=== PATIENT | female | born 1955 | race Caucasian/White ===

== ENCOUNTER → 2016-08-08 | Outpatient (REF) | payer OTHER | LOC: M LAB REF 12:23 | PROVIDERS: ATTEND Internal Medicine Medical Oncology | DX: C50.919 Malignant neoplasm of unspecified site of unspecified female breast (principal) ==

== ENCOUNTER → 2016-11-23 | Outpatient (CLI) | payer OTHER ==
--- NOTE | 2016-11-23 09:35 | REPMRS ---
Patient History The patient states she had a clinical breast exam in Jul 2016. Patient is postmenopausal, has history of breast cancer at age 58, and is nulliparous. Family history of colorectal cancer in maternal aunt. Malignant radio exam breast specimen, January 13, 2014. Benign ultrasound-guided FNA biopsy of the left breast, September 03, 2007. 2 radiation therapies of the left breast. Digital Mammo Screening Bilat: November 23, 2016 - Exam #: [id number] Bilateral CC and MLO view(s) were taken. Technologist: Amy Gutierrez, Technologist Prior study comparison: November 23, 2015, bilateral digital mammo screening bilat performed at [facility]. May 20, 2015, left breast digital mammo diagnostic unilateral performed at [facility]. November 19, 2014, digital mammo diagnostic bilateral performed at [facility]. FINDINGS: There are scattered fibroglandular densities. There has been no change in the appearance of the mammogram from the prior studies. There are stable post treatment changes in the left breast. There is a mild amount of scattered fibroglandular density which is fairly symmetric. There is no interval development of dominant mass, architectural distortion, or clustered microcalcification suggestive of malignancy. ASSESSMENT: BI-RADS/ACR category 1 mammogram. Negative. Recommendation Routine screening mammogram in 1 year (for women over age 40). This mammogram was interpreted with the aid of an FDA-approved computer-aided dectection system. Electronically Signed By: Albino Ernst MD 11/23/16 0935
== END ==
LOC: M RAD 08:57
PROVIDERS: ATTEND Nurse Practitioner Family
DX: Z12.31 Encounter for screening mammogram for malignant neoplasm of breast (principal); Z85.3 Personal history of malignant neoplasm of breast; Z80.3 Family history of malignant neoplasm of breast

== ENCOUNTER → 2016-12-21 | Outpatient (CLI) | payer OTHER ==
--- NOTE | 2016-12-22 06:53 | RADONC ---
RADIATION ONCOLOGY FOLLOWUP NOTE DATE: 12/21/2016 CHART NUMBER: [id number] DIAGNOSIS: Left breast cancer Stage: I B, [id number]. ECOG performance status 0. FOLLOWUP NOTE: Ms. 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 The patient presents today reporting that she is doing quite well with no complaints at this time related to her radiation therapy or disease. She has no breast or bone pain. REVIEW OF SYSTEMS: The patient's review of systems is noncontributory. Denies nausea, vomiting, fevers, chills, night sweats, diplopia, headaches, anxiety or depression, anorexia, weight loss, visual disturbances, chest pain, urinary or bowel difficulties, bone pain, or neurological problems. PHYSICAL EXAMINATION: The patient is a well-developed, well-nourished, 61-year-old female in no acute distress. HEENT exam is normocephalic, atraumatic. Extraocular movements are intact. There is no palpable cervical, supraclavicular, infraclavicular, axillary, or inguinal lymphadenopathy present. Lungs are clear to auscultation and percussion. Heart has a regular rate and rhythm. Abdomen is benign with no hepatosplenomegaly, masses, or tenderness. Breast examination reveals no masses or discharge bilaterally. Skeletal examination reveals no tenderness to pressure or percussion of the bony skeleton. Extremities reveal no clubbing, cyanosis, or edema. Neurologic exam is grossly intact, as is the remainder of the physical examination. ASSESSMENT: The patient is clinically MELI at this time and will be seen by us again in 6 months for further followup. She will also continue to be followed by her other physicians as well. cc: Cary Diop MD, FACP SONIDO Flores
== END ==
LOC: M ONCR 08:50
PROVIDERS: ATTEND Radiology Radiation Oncology
DX: C50.412 Malignant neoplasm of upper-outer quadrant of left female breast (principal)

== ENCOUNTER → 2017-04-19 | Outpatient (REF) | payer OTHER ==
[~2017-04-19] MED LIST: ADV100INH INH; ANAS1TAB PO; CALC600T57 PO; FAMO40TA3 PO; FOSA70TA PO; GLUC1CAP9 PO; MULT1TAB10 PO; NEXI40CA PO; OXYT3.9D TD; SING10TA32 PO; VENTAER IN; VITA-115 PO
[2017-04-19 15:49] LABS: FOLATE 23.9 NG/ML
== END ==
LOC: M LAB REF 12:58
PROVIDERS: ATTEND Internal Medicine Medical Oncology
DX: C50.919 Malignant neoplasm of unspecified site of unspecified female breast (principal)

== ENCOUNTER → 2017-07-05 | Outpatient (CLI) | payer OTHER | LOC: M ONCR 09:03 | DX: C50.412 Malignant neoplasm of upper-outer quadrant of left female breast (principal) | CPT/HCPCS: G0463 ==

== ENCOUNTER 2017-07-21 10:36 | Day surgery (SDC) | payer OTHER ==
[2017-07-21] MEDS: NS 1,000 ML IV (10:45)
[2017-07-21] MEDS ORDERED: PROPOFOL 500 MG/50 ML VIAL As Ordered (10:53)
[2017-07-21] MEDS ORDERED: LIDOCAINE 2% INJ 100 MG/5 ML SDV (FOR ANES.) As Ordered (10:54)
[2017-07-21] MEDS ORDERED: fentaNYL 100 MCG/2 ML INJECTION (J3010) As Ordered (11:04)
[2017-07-21] MEDS ORDERED: PHENYLephrine HCL 500 MCG/5 ML (100MCG/ML) SYRINGE (J2370) As Ordered (11:20)
== END 2017-07-21 12:01 | disposition home or self-care (01) ==
LOC: M OPP 10:36
DX: Z12.11 Encounter for screening for malignant neoplasm of colon (principal); K64.0 First degree hemorrhoids; K57.30 Diverticulosis of large intestine without perforation or abscess without bleeding; R12 Heartburn; K31.7 Polyp of stomach and duodenum; K21.9 Gastro-esophageal reflux disease without esophagitis; K44.9 Diaphragmatic hernia without obstruction or gangrene; M19.90 Unspecified osteoarthritis, unspecified site; N32.81 Overactive bladder; Z88.8 Allergy status to other drugs, medicaments and biological substances; Z79.899 Other long term (current) drug therapy; Z86.59 Personal history of other mental and behavioral disorders; Z85.3 Personal history of malignant neoplasm of breast; Z87.09 Personal history of other diseases of the respiratory system
CPT/HCPCS: 45378

== ENCOUNTER → 2017-09-12 | Outpatient (CLI) | payer OTHER | LOC: M ADAMS 14:15 | DX: M54.6 Pain in thoracic spine (principal) | CPT/HCPCS: 72082 ==

== ENCOUNTER 2017-11-10 08:30 | Emergency (ER) | payer OTHER ==
[2017-11-10 08:42] LABS: BASO # 0.1 10^3/uL (0.0-0.2); BASO % 0.6 % (0.0-1.0); EOS # 0.1 10^3/uL (0.0-0.50); EOS % 1.5 % (0.0-3.0); HEMATOCRIT 37.5 % (36.0-47.0); HEMOGLOBIN 12.8 g/dl (12.0-15.5); IMMATURE GRANULOCYTE % 0.2 % (0-3.0); LYMPH # 1.3 10^3/uL (1.5-4.5); LYMPH % 14.1 % (24.0-44.0); MEAN CORPUSCULAR HEMOGLOBIN 32.5 pg (27.0-33.0); MEAN CORPUSCULAR HGB CONC 34.1 g/dl (32.0-36.5); MEAN CORPUSCULAR VOLUME 95.2 fl (80.0-96.0); MONO # 0.9 10^3/uL (0.0-0.8); MONO % 9.5 % (0.0-5.0); NEUTROPHILS # 6.6 10^3/uL (1.8-7.7); NEUTROPHILS % 74.1 % (36.0-66.0); PLATELET COUNT, AUTOMATED 226 10^3/uL (150-450); RED BLOOD COUNT 3.94 10^6/uL (4.00-5.40); RED CELL DISTRIBUTION WIDTH 11.9 % (11.5-14.5); WHITE BLOOD COUNT 8.9 10^3/uL (4.0-10.0)
[2017-11-10 08:45] LABS: KETONE, URINE AUTO RFX NEGATIVE (NEGATIVE); LEUKOCYTE ESTERASE UR AUTO RFX NEGATIVE (NEGATIVE); NITRITE, URINE AUTO RFX NEGATIVE (NEGATIVE); RBC, URINE AUTO RFX 1 /HPF (0-3); SPECIFIC GRAVITY UR AUTO RFX 1.002 (1.002-1.035); SQUAM EPITHELIAL CELL UR AURFX 0 /HPF (0-6); WBC, URINE AUTO RFX 0 /HPF (0-3)
[2017-11-10] MEDS: NS 1,000 ML IV (08:45)
[2017-11-10 09:27] LABS: ALBUMIN 3.7 GM/DL (3.2-5.2); ALBUMIN/GLOBULIN RATIO 1.03 (1.00-1.93); ALKALINE PHOSPHATASE 76 U/L (45-117); ALT/SGPT 19 U/L (12-78); AMYLASE 41 U/L (25-115); ANION GAP 8 MEQ/L (8-16); AST/SGOT 14 U/L (7-37); BILIRUBIN,DIRECT 0.2 MG/DL (0.0-0.2); BILIRUBIN,TOTAL 0.6 MG/DL (0.2-1.0); BLOOD UREA NITROGEN 17 MG/DL (7-18); CALCIUM LEVEL 8.6 MG/DL (8.8-10.2); CARBON DIOXIDE LEVEL 26 MEQ/L (21-32); CHLORIDE LEVEL 107 MEQ/L (98-107); CREATININE FOR GFR 0.69 MG/DL (0.55-1.30); GLOMERULAR FILTRATION RATE > 60.0 (>45); GLUCOSE, FASTING 87 MG/DL (70-100); LIPASE 114 U/L (73-393); POTASSIUM SERUM 3.9 MEQ/L (3.5-5.1); SODIUM LEVEL 141 MEQ/L (136-145); TOTAL PROTEIN 7.3 GM/DL (6.4-8.2)
[2017-11-10] MEDS ORDERED: ISOVUE-370 76% 100ML VIAL (Q9967) As Ordered (09:28)
[2017-11-10] MEDS: CIPROFLOXACIN 500 MG TAB PO (10:15)
[2017-11-10] MEDS: metroNIDAZOLE (FLAGYL) 500 MG TAB PO (10:15)
== END 2017-11-10 10:20 | disposition home or self-care (01) ==
LOC: M ED 08:30
DX: K57.32 Diverticulitis of large intestine without perforation or abscess without bleeding (principal); K21.9 Gastro-esophageal reflux disease without esophagitis; Z88.8 Allergy status to other drugs, medicaments and biological substances; Z79.51 Long term (current) use of inhaled steroids; Z79.899 Other long term (current) drug therapy; Z87.19 Personal history of other diseases of the digestive system; Z98.890 Other specified postprocedural states
CPT/HCPCS: Q9967

== ENCOUNTER → 2017-11-14 | Outpatient (CLI) | payer OTHER | LOC: M WHC 08:19 | DX: R10.2 Pelvic and perineal pain (principal) | CPT/HCPCS: 76830 ==

== ENCOUNTER → 2017-11-27 | Outpatient (CLI) | payer OTHER | LOC: M RAD 09:28 | DX: Z12.31 Encounter for screening mammogram for malignant neoplasm of breast (principal); Z85.3 Personal history of malignant neoplasm of breast; Z78.0 Asymptomatic menopausal state; Z80.0 Family history of malignant neoplasm of digestive organs | CPT/HCPCS: 77067 ==

== ENCOUNTER → 2017-12-27 | Outpatient (CLI) | payer OTHER | LOC: M ONCR 08:29 | DX: C50.412 Malignant neoplasm of upper-outer quadrant of left female breast (principal) ==

== ENCOUNTER → 2018-02-15 | Outpatient (REF) | payer OTHER | LOC: M SFHCWAGY 09:02 | DX: Z12.4 Encounter for screening for malignant neoplasm of cervix (principal) ==

== ENCOUNTER → 2018-04-13 | Outpatient (CLI) | payer OTHER | LOC: M WHC 08:20 | DX: C50.919 Malignant neoplasm of unspecified site of unspecified female breast (principal); Z79.811 Long term (current) use of aromatase inhibitors | CPT/HCPCS: 77080 ==

== ENCOUNTER → 2018-04-13 | Outpatient (REF) | payer OTHER | LOC: M SFHCWAGY 08:53 | DX: R87.615 Unsatisfactory cytologic smear of cervix (principal) ==

== ENCOUNTER → 2018-04-26 | Outpatient (CLI) | payer OTHER | LOC: M RAD 09:39 | DX: C50.412 Malignant neoplasm of upper-outer quadrant of left female breast (principal); M54.5 Low back pain | CPT/HCPCS: 78306 ==

== ENCOUNTER → 2018-06-20 | Outpatient (CLI) | payer OTHER | LOC: M ONCR 14:37 | DX: C50.412 Malignant neoplasm of upper-outer quadrant of left female breast (principal) | CPT/HCPCS: G0463 ==

== ENCOUNTER → 2018-07-31 | Outpatient (CLI) | payer OTHER ==
[~2018-07-31] MED LIST changes: -ANAS1TAB PO; +ANAS1TAB2 PO; +CIPR-249 PO; +FLAG500T PO; +NORCOTAB PO
--- NOTE | 2018-07-31 19:44 | ECGEPIP ---
Stationary ECG Study [facility] Test Date: 2018-07-31 Pat Name: JOSE MILIAN Department: Room: - Gender: F Spool Winder: : [id number] Requested By: Castro Pillai Order Number: [id number] Reading MD: Milton Guillen Measurements Intervals [place] Rate: 84 P: 57 UT: 171 QRS: 67 QRSD: 81 T: 61 QT: 367 QTc: 435 Interpretive Statements Normal sinus rhythm with PAC Nonspecific ST-T wave abnormalities Comparison tracing not on file Electronically Signed On 07-31-2018 19:44:06 EST by Milton Guillen
== END ==
LOC: M EKG 16:47
PROVIDERS: ATTEND Anesthesiology
DX: Z01.818 Encounter for other preprocedural examination (principal); K44.9 Diaphragmatic hernia without obstruction or gangrene; K21.9 Gastro-esophageal reflux disease without esophagitis; M81.0 Age-related osteoporosis without current pathological fracture

== ENCOUNTER 2018-08-07 05:48 | Inpatient (IN) | payer OTHER ==
--- NOTE | 2018-08-06 17:37 | HPE ---
DATE OF ADMISSION: 08/07/2018 BRIEF HISTORY OF PRESENT ILLNESS: The patient is a 63-year-old female who has had multiple episodes of recurrent left lower quadrant pain and discomfort, partial obstructive symptoms, and this has happened over the last year. Essentially has had some partial obstructive symptoms as well in between these episodes of diverticulitis. She has some significant pain and discomfort in the left lower quadrant area and has had several episodes where CAT scans have shown diverticulitis. She states after taking stool softeners and evacuating she will have decreasing pain and discomfort but otherwise has not had any blood per rectum. PAST MEDICAL HISTORY: Significant for a history of fiber cystic disease of the breast, asthma, hiatal hernia, arthritis, overactive bladder, breast cancer, depression, appendectomy, cholecystectomy, tubal ligation, hiatal hernia repair. PHYSICAL EXAMINATION: Reveals a 63-year-old female who looks stated age. HEENT: Unremarkable. NECK: Supple without adenopathy. LUNGS: Clear to auscultation without crackles, wheezes or rhonchi. HEART: Regular without murmur. ABDOMEN: Soft, nondistended, nontender. No guarding. No rebound. No peritoneal signs are appreciated. No evidence of ongoing or acute diverticulitis. IMPRESSION AND PLAN: The patient has had multiple episodes of diverticulitis and with the left lower quadrant pain, discomfort and the symptoms of recurrent episodes of diverticulitis with left lower quadrant pain, I have discussed proceeding with a laparoscopic sigmoid colectomy for her. The risks as well as the benefits have been discussed with her at length, those including but not limited to infection, bleeding, damage to surrounding structures including bowel, bladder, nerve, vessels, ureter or kidney as well as plans for a splenic flexure takedown with a coloproctostomy. The patient understands there is a risk for colostomy placement as well as anastomotic leak and postoperatively I have discussed with her as well, she has had this left lower quadrant pain that seems consistent with the symptomatic diverticulosis/recurrent episodes of diverticulitis. However, she may still have some ongoing crampy abdominal pain that may be persistent postoperatively, unrelated to the previous diagnosis. She would like to proceed with this as scheduled. We will place a Rust catheter, nothing by mouth, IV fluids, IV antibiotics, and place thromboembolic-deterrent stockings (TEDS), sequentials intraoperatively and postoperatively. Plan on admission and hospital days depending on her postoperative recovery, usually ranging from 3-5 in the typical postoperative setting.
[2018-08-07] VITALS (7 sets, daily range): BP systolic 129–147; BP diastolic 72–85
[~2018-08-07] VITALS: Ht 167.6 cm; Wt 62.1 kg
[2018-08-07] MEDS ORDERED: LR 1,000 ML IV ONE (06:00)
[2018-08-07] MEDS ORDERED: METR-201 PO (06:36)
[2018-08-07] MEDS ORDERED: NEOM500T PO (06:36)
[2018-08-07] MEDS ORDERED: BUPIVACAINE HCL 0.25% 30 ML VIAL As Ordered ONE (07:08)
[2018-08-07] MEDS ORDERED: BUPIVACAINE LIPOSOME/PF 1.3% 20ML VIAL (13.3MG/ML)(EXPAREL)(C9290 PER1MG) As Ordered ONE (07:08)
[2018-08-07] MEDS ORDERED: GLUCAGON FOR INJ 1 MG VIAL (J1610) As Ordered ONE (07:08)
[2018-08-07] MEDS ORDERED: BUPIVACAINE/EPIN 0.25% 30 ML VIAL As Ordered ONE (07:08)
[2018-08-07] MEDS ORDERED: LIDOCAINE 2% INJ 100 MG/5 ML SDV (FOR ANES.) As Ordered ONE (07:17)
[2018-08-07] MEDS ORDERED: PROPOFOL 200 MG/20 ML VIAL As Ordered ONE (07:17)
[2018-08-07] MEDS ORDERED: ROCURONIUM BROMIDE 50 MG/5 ML VIAL As Ordered ONE ×2 (07:17→08:16)
[2018-08-07] MEDS ORDERED: fentaNYL 100 MCG/2 ML INJECTION (J3010) As Ordered ONE (07:17)
[2018-08-07] MEDS ORDERED: MIDAZOLAM INJ 2 MG/2 ML VIAL (J2250) As Ordered ONE (07:17)
[2018-08-07] MEDS ORDERED: ERTAPENEM SODIUM 1 GM in NS 50 ML IV ONE (07:45)
[2018-08-07] MEDS ORDERED: HYDROmorphone HCL 2 MG/ML 1ML VIAL (J1170) As Ordered ONE (08:01)
[2018-08-07] MEDS ORDERED: dexameTHASONE 4 MG/ML 1ML VIAL (J1100) As Ordered ONE (08:02)
[2018-08-07] MEDS ORDERED: PHENYLephrine HCL 500 MCG/5 ML (100MCG/ML) SYRINGE (J2370) As Ordered ONE (08:16)
[2018-08-07] MEDS ORDERED: ONDANSETRON 4MG/2ML VIAL (J2405) As Ordered ONE (09:58)
[2018-08-07] MEDS ORDERED: SUGAMMADEX SODIUM 500 MG/5 ML VIAL (BRIDION) As Ordered ONE (09:58)
[2018-08-07] MEDS ORDERED: NS 1,000 ML IV SCH (10:07)
[2018-08-07] MEDS ORDERED: METOCLOPRAMIDE INJ 10MG/2ML VIAL (J2765) IV PRN (10:15)
[2018-08-07] MEDS ORDERED: PROMETHAZINE INJ 25 MG/ML VIAL (J2550) IV PRN (10:15)
[2018-08-07] MEDS ORDERED: EPIDURAL/PCA KEYS XX PRN (10:15)
[2018-08-07] MEDS ORDERED: ONDANSETRON 4MG/2ML VIAL (J2405) IV PRN ×2 (10:15→10:30)
[2018-08-07] MEDS ORDERED: NALOXONE INJ 0.4 MG/1 ML VIAL (J2310) IV PRN (10:15)
[2018-08-07] MEDS ORDERED: MORPHINE 1MG/ML IN 0.9% NACL 100ML IV BAG IV PRN (10:15)
[2018-08-07] MEDS ORDERED: NALBUPHINE HCL 10 MG/ML AMP (J2300) IV PRN (10:15)
[2018-08-07] MEDS ORDERED: HYDROMORPHONE HCL 0.5 MG/ 0.5 ML SYRINGE (J1170 PER 1) IV PRN (10:30)
[2018-08-07] MEDS ORDERED: PERCOCET 5MG/325MG TAB PO PRN (10:30)
[2018-08-07] MEDS ORDERED: LR 1,000 ML IV SCH (10:30)
[2018-08-07] MEDS ORDERED: fentaNYL 100 MCG/2 ML INJECTION (J3010) IV PRN (10:30)
--- NOTE | 2018-08-07 10:44 | RO ---
DATE OF PROCEDURE: 08/07/2018 PREOPERATIVE DIAGNOSIS: Sigmoid diverticulitis. POSTOPERATIVE DIAGNOSIS: Sigmoid diverticulitis. PROCEDURE: Laparoscopic sigmoid colectomy with coloproctostomy. SURGEON: Remy Hallman MD BLANKET BINDER: Dr. Townsend (Dr. Townsend provided retraction exposure, assistance with the coloanal anastomosis. ESTIMATED BLOOD LOSS (EBL): Minimal. FLUIDS: Crystalloid. BRIEF PROCEDURE SUMMARY: The patient was brought to the operating room, was given general anesthesia. After adequate anesthesia and preoperative antibiotics were given, the patient was prepped and draped in the usual sterile fashion. Next, a supraumbilical incision was made with skin knife. Blunt dissection was carried down to fascia. Fascia was grasped with Suzan clamps, elevated and a Veress needle placed into the abdominal cavity insufflated to 15 mm of pressure. A dilating 10 mm trocar was placed at this time and under direct visualization two left lateral 5 mm trocars were placed; a 5 mm right upper quadrant and 12 mm right lower quadrant placed. Next, the patient was placed in Trendelenburg position right side down and the small bowel was pulled out of the pelvis, and there was definitely some adhesions of the sigmoid colon up against left pelvic sidewall and up against the ovary. It was actually tightly adherent to the ovary on the side and I did need to peel off the ovary off the colon itself using a Harmonic scalpel, and peeling it off the pelvic sidewall in this area using the Harmonic scalpel. Eventually after the sigmoid colon was mobilized adequately it was obvious that there was a significant amount of redundancy in the sigmoid colon, and thus, a portion distal to the area of inflammation/scarring was identified and then the mesentery was taken down with Harmonic scalpel. BETTIE stapler was placed across this and then the vessels on the sigmoid area were taken under direct visualization as well with the echelon 60 stapler. The colon was transected at the rectosigmoid junction and below any additional diverticulum. Then, the descending colon was mobilized using the Harmonic scalpel as well as down to the level of the descending colon, sigmoid colon junction. Once this area was nicely mobilized, it was obvious that the colon could reach the rectosigmoid junction. Thus, a small abdominal incision was made with skin knife. Electrocautery was used cut through dermis, underlying subcutaneous tissue down into the peritoneum. A portion of the bowel was resected. The EEA stapler was placed on the proximal portion and placed intra-abdominally. #1 Vicryl was used to close the incision at the umbilicus and the patient was re-insufflated and an anastomosis was created with an end-to-end anastomosis just distal to the rectal staple line. Once this was performed, water was placed into pelvis and under air insufflation the area was intact. There was a slight serosal tear on the rectum distally. Although, this was not transmural just in its location a couple centimeters away from the anastomosis I did want to risks increased pressure, edema, etc. in this area. Thus, I placed some fibrin glue over the top of this and over the anastomosis in this area. The Harpal-Victoria was used to the right lower quadrant incision and a North-Botello drain was left in the dissection. All incisions were closed with danny and dry sterile dressing. The patient was awakened, extubated, brought to recovery room awake, alert, hemodynamically stable. Sponge and needle counts correct times two.
[2018-08-07] MEDS: NS 1,000 ML IV SCH (13:04)
[2018-08-07] MEDS: ADVAIR HFA 45/21MCG INHALER INH SCH (22:45)
[2018-08-08] VITALS: BP 119/58
[2018-08-08] MEDS: NS 1,000 ML IV SCH ×4 (03:59→20:28)
[2018-08-08 04:00] VITALS: BP 136/70
[2018-08-08 07:11] LABS: HEMATOCRIT 32.8 % (36.0-47.0); HEMOGLOBIN 10.9 g/dl (12.0-15.5); MEAN CORPUSCULAR HEMOGLOBIN 32.6 pg (27.0-33.0); MEAN CORPUSCULAR HGB CONC 33.2 g/dl (32.0-36.5); MEAN CORPUSCULAR VOLUME 98.2 fl (80.0-96.0); PLATELET COUNT, AUTOMATED 206 10^3/uL (150-450); RED BLOOD COUNT 3.34 10^6/uL (4.00-5.40); WHITE BLOOD COUNT 8.3 10^3/uL (4.0-10.0)
[2018-08-08 07:26] LABS: BLOOD UREA NITROGEN 17 MG/DL (7-18); CALCIUM LEVEL 7.6 MG/DL (8.8-10.2); CARBON DIOXIDE LEVEL 23 MEQ/L (21-32); CHLORIDE LEVEL 108 MEQ/L (98-107); CREATININE FOR GFR 0.48 MG/DL (0.55-1.30); GLOMERULAR FILTRATION RATE > 60.0 (>45); GLUCOSE, FASTING 76 MG/DL (70-100); POTASSIUM SERUM 3.9 MEQ/L (3.5-5.1); SODIUM LEVEL 140 MEQ/L (136-145)
[2018-08-08] MEDS: ADVAIR HFA 45/21MCG INHALER INH SCH ×2 (07:32→21:25)
[2018-08-08] MEDS ORDERED: ERTAPENEM SODIUM 1 GM in NS MINI-BAG PLUS 50 ML IV ONE (08:00)
[2018-08-08 08:30] VITALS: BP 121/60
[2018-08-08] MEDS: PANTOPRAZOLE 40MG INJ (PROTONIX) (C9113) IV SCH (08:39)
[2018-08-08] MEDS ORDERED: MONTELUKAST 10 MG TAB PO SCH (09:00)
[2018-08-08 12:00] VITALS: BP 133/68
[2018-08-08] MEDS: ALVIMOPAN 12 MG CAPSULE (ENTEREG) PO SCH ×2 (13:24→20:28)
[2018-08-08 16:00] VITALS: BP 134/64
[2018-08-08 20:00] VITALS: BP 140/70
[2018-08-08] MEDS: MONTELUKAST 10 MG TAB PO SCH (20:28)
[2018-08-09] VITALS: BP 137/67
[2018-08-09] MEDS: NS 1,000 ML IV SCH ×2 (02:07→10:37)
[2018-08-09 04:00] VITALS: BP 131/74
[2018-08-09] MEDS: ADVAIR HFA 45/21MCG INHALER INH SCH ×2 (07:24→20:03)
[2018-08-09 08:00] VITALS: BP 141/72
[2018-08-09 08:00] LABS: HEMATOCRIT 32.1 % (36.0-47.0); HEMOGLOBIN 10.8 g/dl (12.0-15.5); MEAN CORPUSCULAR HEMOGLOBIN 32.7 pg (27.0-33.0); MEAN CORPUSCULAR HGB CONC 33.6 g/dl (32.0-36.5); MEAN CORPUSCULAR VOLUME 97.3 fl (80.0-96.0); PLATELET COUNT, AUTOMATED 200 10^3/uL (150-450); WHITE BLOOD COUNT 8.4 10^3/uL (4.0-10.0)
[2018-08-09 08:31] LABS: BLOOD UREA NITROGEN 13 MG/DL (7-18); CALCIUM LEVEL 7.6 MG/DL (8.8-10.2); CARBON DIOXIDE LEVEL 23 MEQ/L (21-32); CHLORIDE LEVEL 106 MEQ/L (98-107); CREATININE FOR GFR 0.36 MG/DL (0.55-1.30); GLOMERULAR FILTRATION RATE > 60.0 (>45); GLUCOSE, FASTING 54 MG/DL (70-100); POTASSIUM SERUM 3.6 MEQ/L (3.5-5.1); SODIUM LEVEL 138 MEQ/L (136-145)
[2018-08-09] MEDS: PANTOPRAZOLE 40MG INJ (PROTONIX) (C9113) IV SCH (09:04)
[2018-08-09] MEDS: ALVIMOPAN 12 MG CAPSULE (ENTEREG) PO SCH ×2 (09:04→21:17)
[2018-08-09 12:00] VITALS: BP 144/86
[2018-08-09 16:00] VITALS: BP 133/76
--- NOTE | 2018-08-09 16:12 | IPNPDOC ---
Date Seen The patient was seen on 08/09/18. Progress Note SUBJECTIVE: Patient was seen and examined this morning. She states that she has had some improvement in her pain. She currently denies passing gas or having a bowel movement. She denies any nausea or vomiting. She did state that she had some rectal bleeding last night. She denies any fever or chills. OBJECTIVE PHYSICAL EXAMINATION: VITAL SIGNS: Please see below. GENERAL: Awake alert and oriented x3. She appears in no acute distress. She is laying comfortably in bed. HEENT: Atraumatic, normocephalic. Eyes are non-icteric. Trachea is midline. CARDIOVASCULAR: Normal S1, S2. Regular rate and rhythm. No clicks rubs or murmurs noted on exam RESPIRATORY: Clear to auscultation bilaterally with good respiratory effort. No wheezes, rhonci, or rales ABDOMINAL: Nondistended, soft. Slight tenderness to palpation. No rebound tenderness or guarding. Midline incision is without erythema. Serosanguineous drainage is present at midline incision. VANESSA drain is in place. EXTREMITIES: No edema. Full and equal pulses PSYCHOLOGICAL: Mood and affect appear appropriate LABORATORY DATA, IMAGING STUDIES, MICROBIOLOGY: Please see below. ASSESSMENT AND PLAN: 1. Diverticulitis s/p laparoscopic sigmoid colectomy post-op day 2 -Patient has noted improvement in her pain. She is still not passing gas or having bowel movements. -Patient remains afebrile without a white count. Will continue to monitor -Patient has had elder removed today. She will receive her home oxybutin patch for urinary incontinence -Patient will be advanced to clear liquids diet VS, I&O, 24H, [facility] Vital Signs/I&O Vital Signs Date Time Temp Pulse Resp B/P (MAP) Pulse Ox O2 Delivery O2 Flow Rate FiO2 08/09/18 12:00 98.4 94 20 144/86 (105) 99 2.0 08/08/18 12:00 Nasal Cannula I&O- Last 24 Hours up to 6 AM 08/09/18 06:00 Intake Total 100 ml Output Total 1715 ml Balance -1615 ml Laboratory Data 24H LABS Laboratory Tests 2 08/09/18 07:08: Nucleated Red Blood Cells % (auto) 0.0, Anion Gap 9, Glomerular Filtration Rate > 60.0, Blood Urea Nitrogen 13, Creatinine 0.36L, Sodium Level 138, Potassium Level 3.6, Chloride Level 106, Carbon Dioxide Level 23, Calcium Level 7.6L CBC/BMP Laboratory Tests 08/09/18 07:08 Red Blood Count 3.30 L, Mean Corpuscular Volume 97.3 H, Mean Corpuscular Hemoglobin 32.7, Mean Corpuscular Hemoglobin Concent 33.6, Red Cell Distribution Width 11.7, Calcium Level 7.6 L GME ATTESTATION GME ATTESTATION My faculty preceptor for this patient encounter was physically present during the encounter and was fully available. All aspects of the patient interview, examination, medical decision making process, and medical care plan development were reviewed and approved by the faculty preceptor. The faculty preceptor is aware and concurs with the plan as stated in the body of this note and will attest to such by his/her cosignature. GARY NAVARRO DO Aug 09, 2018 16:12
[2018-08-09 20:00] VITALS: BP 125/64
[2018-08-09] MEDS: MONTELUKAST 10 MG TAB PO SCH (21:17)
[2018-08-09] MEDS: ANASTROZOLE 1MG TABLET (PATIENT'S OWN MED) PO SCH (21:17)
[2018-08-10] VITALS: BP 132/70
[2018-08-10 04:00] VITALS: BP 142/73
[2018-08-10 06:53] LABS: HEMOGLOBIN 11.1 g/dl (12.0-15.5); MEAN CORPUSCULAR HEMOGLOBIN 32.5 pg (27.0-33.0); MEAN CORPUSCULAR HGB CONC 33.6 g/dl (32.0-36.5); MEAN CORPUSCULAR VOLUME 96.5 fl (80.0-96.0); PLATELET COUNT, AUTOMATED 188 10^3/uL (150-450); RED BLOOD COUNT 3.42 10^6/uL (4.00-5.40); WHITE BLOOD COUNT 7.2 10^3/uL (4.0-10.0)
[2018-08-10 07:22] LABS: BLOOD UREA NITROGEN 9 MG/DL (7-18); CALCIUM LEVEL 8.1 MG/DL (8.8-10.2); CARBON DIOXIDE LEVEL 29 MEQ/L (21-32); CHLORIDE LEVEL 104 MEQ/L (98-107); CREATININE FOR GFR 0.37 MG/DL (0.55-1.30); GLOMERULAR FILTRATION RATE > 60.0 (>45); GLUCOSE, FASTING 94 MG/DL (70-100); POTASSIUM SERUM 3.7 MEQ/L (3.5-5.1); SODIUM LEVEL 139 MEQ/L (136-145)
[2018-08-10 08:00] VITALS: BP 139/65
[2018-08-10] MEDS: ADVAIR HFA 45/21MCG INHALER INH SCH ×2 (08:22→20:13)
[2018-08-10] MEDS: PANTOPRAZOLE 40MG INJ (PROTONIX) (C9113) IV SCH (10:24)
--- NOTE | 2018-08-10 10:35 | IPNPDOC ---
Date Seen The patient was seen on 08/10/18. Progress Note SUBJECTIVE: Patient was seen and examined this morning. She currently admits to improvement in her pain. She has had two bowel movements since yesterday. She is denying any fevers, chills, nausea, vomiting, or diarrhea. She did state that during her bowel movement she may have noticed some blood but nothing alarming. She does state that she has an appetite. OBJECTIVE PHYSICAL EXAMINATION: VITAL SIGNS: Please see below. GENERAL: Patient is awake, alert, and oriented. She appears in no acute distress. She is sitting comfortably in chair. HEENT: Atraumatic, normocephalic. Eyes are non-icteric. Trachea is midline CARDIOVASCULAR: Normal S1, S2. Regular rate and rhythm. No clicks, rubs, or m urmurs noted on exam. RESPIRATORY: Clear to auscultation bilaterally with good respiratory effort. No wheezes, rhonchi, or rales ABDOMINAL: Soft, slight tenderness to palpation. No rebound tenderness or guarding. Positive bowel sound in all four quadrants EXTREMITIES: No edema. Full and equal pulses bilaterally PSYCHOLOGICAL: Mood and affect appear appropriate LABORATORY DATA, IMAGING STUDIES, MICROBIOLOGY: Please see below. ASSESSMENT AND PLAN: 1. Diverticulitis s/p laparoscopic sigmoid colectomy post-op day 3 -Patient has noted improvement in her pain. She has had two bowel movements since last night -Patient remains afebrile without a white count. Will continue to monitor -Patient will be advanced to a regular diet. Will D/C IV fluids. -D/C IV pain medication. Patient will be started on Vicodin for pain control DISPOSITION: Patient continues to show improvement. Likely discharge in 2-3 days VS[facility] Vital Signs/I&O Vital Signs Date Time Temp Pulse Resp B/P (MAP) Pulse Ox O2 Delivery O2 Flow Rate FiO2 08/10/18 08:00 98.1 90 18 139/65 (89) 95 08/10/18 05:13 2.0 08/08/18 12:00 Nasal Cannula I&O- Last 24 Hours up to 6 AM 08/10/18 06:00 Intake Total 3080 ml Output Total 1370 ml Balance 1710 ml Laboratory Data 24H LABS Laboratory Tests 2 08/10/18 06:37: Nucleated Red Blood Cells % (auto) 0.0, Anion Gap 6L, Glomerular Filtration Rate > 60.0, Blood Urea Nitrogen 9, Creatinine 0.37L, Sodium Level 139, Potassium Level 3.7, Chloride Level 104, Carbon Dioxide Level 29, Calcium Level 8.1L CBC/BMP Laboratory Tests 08/10/18 06:37 Red Blood Count 3.42 L, Mean Corpuscular Volume 96.5 H, Mean Corpuscular Hemoglobin 32.5, Mean Corpuscular Hemoglobin Concent 33.6, Red Cell Distribution Width 11.7, Calcium Level 8.1 L GME ATTESTATION GME ATTESTATION My faculty preceptor for this patient encounter was physically present during the encounter and was fully available. All aspects of the patient interview, examination, medical decision making process, and medical care plan development were reviewed and approved by the faculty preceptor. The faculty preceptor is aware and concurs with the plan as stated in the body of this note and will attest to such by his/her cosignature. GARY NAVARRO DO Aug 10, 2018 10:35
[2018-08-10 16:00] VITALS: BP 130/61
[2018-08-10] MEDS: NORCO, ANEXSIA 5/325MG TABLET (HYDROcodone/ACETAMINOPHEN) PO PRN ×2 (16:19→20:59)
[2018-08-10] MEDS: ANASTROZOLE 1MG TABLET (PATIENT'S OWN MED) PO SCH (20:43)
[2018-08-10] MEDS: MONTELUKAST 10 MG TAB PO SCH (20:45)
[2018-08-10 21:00] VITALS: BP 119/72
[2018-08-10] MEDS ORDERED: OXYTROL TD SCH (21:00)
[2018-08-11] VITALS: BP 134/67
[2018-08-11 04:00] VITALS: BP 136/79
[2018-08-11] MEDS: NORCO, ANEXSIA 5/325MG TABLET (HYDROcodone/ACETAMINOPHEN) PO PRN ×2 (04:29→10:26)
[2018-08-11 06:35] LABS: HEMATOCRIT 34.6 % (36.0-47.0); HEMOGLOBIN 11.7 g/dl (12.0-15.5); MEAN CORPUSCULAR HEMOGLOBIN 32.8 pg (27.0-33.0); MEAN CORPUSCULAR HGB CONC 33.8 g/dl (32.0-36.5); MEAN CORPUSCULAR VOLUME 96.9 fl (80.0-96.0); PLATELET COUNT, AUTOMATED 219 10^3/uL (150-450); RED BLOOD COUNT 3.57 10^6/uL (4.00-5.40); WHITE BLOOD COUNT 7.7 10^3/uL (4.0-10.0)
[2018-08-11 07:13] LABS: BLOOD UREA NITROGEN 9 MG/DL (7-18); CALCIUM LEVEL 8.7 MG/DL (8.8-10.2); CARBON DIOXIDE LEVEL 31 MEQ/L (21-32); CHLORIDE LEVEL 104 MEQ/L (98-107); CREATININE FOR GFR 0.44 MG/DL (0.55-1.30); GLOMERULAR FILTRATION RATE > 60.0 (>45); GLUCOSE, FASTING 107 MG/DL (70-100); SODIUM LEVEL 141 MEQ/L (136-145)
[2018-08-11 08:00] VITALS: BP 137/66
[2018-08-11] MEDS: PANTOPRAZOLE 40MG INJ (PROTONIX) (C9113) IV SCH (08:08)
[2018-08-11] MEDS: ADVAIR HFA 45/21MCG INHALER INH SCH (08:15)
[2018-08-11] MEDS ORDERED: NORCOTAB PO (08:19)
== END 2018-08-11 10:45 | disposition home or self-care (01) | DRG 331 ==
LOC: M OR 05:48 → M PED 11:30
PROVIDERS: ADMIT Surgery; ATTEND Surgery
PROC: 0DBE4ZZ Excision of Large Intestine, Percutaneous Endoscopic Approach (ICD-10-PCS; principal; 2018-08-07 07:30)
DX: K57.32 Diverticulitis of large intestine without perforation or abscess without bleeding (principal); J45.909 Unspecified asthma, uncomplicated; K44.9 Diaphragmatic hernia without obstruction or gangrene; F32.9 Major depressive disorder, single episode, unspecified; N32.81 Overactive bladder; Z85.3 Personal history of malignant neoplasm of breast; Z90.49 Acquired absence of other specified parts of digestive tract; Z88.6 Allergy status to analgesic agent; Z91.048 Other nonmedicinal substance allergy status; Z79.899 Other long term (current) drug therapy

== ENCOUNTER → 2018-09-13 | Outpatient (REF) | payer OTHER ==
[~2018-09-13] MED LIST changes: +METR-201 PO; +NEOM500T PO
[2018-09-13 12:37] LABS: HEMATOCRIT 38.8 % (36.0-47.0); HEMOGLOBIN 12.7 g/dl (12.0-15.5); MEAN CORPUSCULAR HEMOGLOBIN 32.2 pg (27.0-33.0); MEAN CORPUSCULAR HGB CONC 32.7 g/dl (32.0-36.5); MEAN CORPUSCULAR VOLUME 98.2 fl (80.0-96.0); PLATELET COUNT, AUTOMATED 244 10^3/uL (150-450); RED BLOOD COUNT 3.95 10^6/uL (4.00-5.40); WHITE BLOOD COUNT 6.1 10^3/uL (4.0-10.0)
[2018-09-13 13:28] LABS: ALBUMIN 3.8 GM/DL (3.2-5.2); ALT/SGPT 22 U/L (12-78); BILIRUBIN,TOTAL 0.5 MG/DL (0.2-1.0); BLOOD UREA NITROGEN 14 MG/DL (7-18); CALCIUM LEVEL 9.3 MG/DL (8.8-10.2); CARBON DIOXIDE LEVEL 32 MEQ/L (21-32); CHLORIDE LEVEL 103 MEQ/L (98-107); CHOLESTEROL LEVEL 186 MG/DL (<200); CHOLESTEROL RISK RATIO 2.818 (<5); CREATININE FOR GFR 0.56 MG/DL (0.55-1.30); FREE T4 0.97 NG/DL (0.76-1.46); GLOMERULAR FILTRATION RATE > 60.0 (>45); GLUCOSE, FASTING 85 MG/DL (70-100); HDL CHOLESTEROL 66 MG/DL (>40); LDL CHOLESTEROL 108 MG/DL (<100); NON-HDL-C 120 MG/DL; POTASSIUM SERUM 4.2 MEQ/L (3.5-5.1); SODIUM LEVEL 141 MEQ/L (136-145); THYROID STIMULATING HORMONE 0.779 uIU/ML (0.358-3.740); TOTAL 25(OH) VITAMIN D 33.6 NG/ML (30.0-100.0); TOTAL PROTEIN 6.9 GM/DL (6.4-8.2); TRIGLYCERIDES LEVEL 60 MG/DL (<150)
[2018-09-14 11:28] LABS: HEPATITIS C VIRUS ABY INDEX < 0.0 INDEX (<0.8)
== END ==
LOC: M SFHCADAM 08:20
PROVIDERS: ATTEND Family Medicine
DX: K57.32 Diverticulitis of large intestine without perforation or abscess without bleeding (principal); E78.5 Hyperlipidemia, unspecified; Z11.59 Encounter for screening for other viral diseases; E55.9 Vitamin D deficiency, unspecified

== ENCOUNTER → 2018-09-27 | Outpatient (CLI) | payer OTHER ==
--- NOTE | 2018-09-28 16:43 | REP ---
Clinical: Right upper quadrant pain. Technique: Axial noncontrast images from the lung bases to the pubic symphysis with coronal and sagittal re-formations. Comparison: 02/13/2018. Findings: Lung bases are clear. Liver, spleen, pancreas, bilateral adrenal glands and kidneys are normal for noncontrast evaluation. The patient is status post cholecystectomy. The enteric system demonstrates diffuse diverticulosis without evidence for obstruction or acute inflammatory process. Pelvis demonstrates normal bladder and evidence of prior hysterectomy as well as prior partial sigmoid resection and anastomoses. No ascites. No free air. No obvious adenopathy. Abdominal aorta without aneurysm. Musculoskeletal structures demonstrate age-related degenerative change without focal osseous abnormality. Impression: 1. No acute abdominopelvic pathology appreciated. 2. Diverticulosis. 3. Chronic stable changes. Electronically Signed by René Cross MD 09/28/2018 04:33 P
== END ==
LOC: M RAD 16:09
PROVIDERS: ATTEND Surgery
DX: R10.11 Right upper quadrant pain (principal); K57.50 Diverticulosis of both small and large intestine without perforation or abscess without bleeding

== ENCOUNTER → 2018-11-29 | Outpatient (CLI) | payer OTHER ==
[~2018-11-29] MED LIST changes: +D-40TAB2 PO; +GLUC500C37 PO; +HYDR-3715 PO; -METR-201 PO; +METR-265 PO; +MIRA3350 PO; -NORCOTAB PO; +[UNRECOGNIZED DRUG - CODE] PO
--- NOTE | 2018-11-29 10:11 | REPMRS ---
Patient History The patient states she had a clinical breast exam in October 2018.Family history of colorectal cancer in maternal aunt. Malignant radio exam breast specimen, January 13, 2014. Benign ultrasound-guided FNA biopsy of the left breast, September 03, 2007. 2 radiation therapies of the left breast. 3D TOMOSYNTHESIS WAS PERFORMED. Digital Mammo Screening Bilat: November 29, 2018 - Exam #: [id number] Bilateral CC and MLO view(s) were taken. Technologist: Frances Brown, Technologist Prior study comparison: November 27, 2017, bilateral digital mammo screening bilat performed at [facility]. November 23, 2016, bilateral digital mammo screening bilat performed at [facility]. FINDINGS: There are scattered fibroglandular densities. There has been no change in the appearance of the mammogram from the prior studies. There is a mild amount of residual fibroglandular tissue which is fairly symmetric. There is no interval development of dominant mass, architectural distortion, or clustered microcalcification suggestive of malignancy. Assessment: BI-RADS/ACR category 1 mammogram. Negative Mammogram. Recommendation Routine screening mammogram in 1 year (for women over age 40). This mammogram was interpreted with the aid of an FDA-approved computer-aided dectection system. Electronically Signed By: Aly Chowdary MD 11/29/18 1013
== END ==
LOC: M RAD 08:24
PROVIDERS: ATTEND Internal Medicine Hematology & Oncology
DX: Z12.31 Encounter for screening mammogram for malignant neoplasm of breast (principal); Z85.3 Personal history of malignant neoplasm of breast; Z80.0 Family history of malignant neoplasm of digestive organs

== ENCOUNTER → 2019-01-17 | Outpatient (REF) | payer OTHER ==
[2019-01-17 19:03] LABS: APPEARANCE, URINE CLEAR (CLEAR); BACTERIA, URINE AUTO NEGATIVE (NEGATIVE); BILIRUBIN, URINE AUTO NEGATIVE (NEGATIVE); BLOOD, URINE BLOOD NEGATIVE (NEGATIVE); COLOR, URINE YELLOW (YELLOW); GLUCOSE, URINE (UA) AUTO NEGATIVE (NEGATIVE); KETONE, URINE AUTO NEGATIVE (NEGATIVE); LEUKOCYTE ESTERASE, URINE AUTO NEGATIVE (NEGATIVE); NITRITE, URINE AUTO NEGATIVE (NEGATIVE); PROTEIN, URINE AUTO NEGATIVE (NEGATIVE); RBC, URINE AUTO 0 /HPF (0-3); SPECIFIC GRAVITY URINE AUTO 1.005 (1.002-1.035); SQUAMOUS EPITHELIAL CELL UR AU 0 /HPF (0-6); UROBILINOGEN, URINE AUTO 0.2 mg/dL (0.0-2.0); WBC, URINE AUTO 0 /HPF (0-3)
== END ==
LOC: M SMT 17:06
PROVIDERS: ATTEND Urology
DX: R39.9 Unspecified symptoms and signs involving the genitourinary system (principal)

== ENCOUNTER 2019-01-19 09:20 | Emergency (ER) | payer OTHER ==
[~2019-01-19] VITALS: Ht 167.6 cm; Wt 61.4 kg
[2019-01-19 10:25] LABS: BASO # 0.1 10^3/uL (0.0-0.2); BASO % 1.1 % (0.0-1.0); EOS # 0.1 10^3/uL (0.0-0.50); EOS % 2.4 % (0.0-3.0); HEMATOCRIT 38.7 % (36.0-47.0); HEMOGLOBIN 12.9 g/dl (12.0-15.5); LYMPH # 1.2 10^3/uL (1.5-4.5); LYMPH % 22.4 % (24.0-44.0); MEAN CORPUSCULAR HEMOGLOBIN 32.2 pg (27.0-33.0); MEAN CORPUSCULAR HGB CONC 33.3 g/dl (32.0-36.5); MEAN CORPUSCULAR VOLUME 96.5 fl (80.0-96.0); MONO # 0.6 10^3/uL (0.0-0.8); MONO % 10.9 % (0.0-5.0); NEUTROPHILS # 3.4 10^3/uL (1.8-7.7); PLATELET COUNT, AUTOMATED 265 10^3/uL (150-450); RED BLOOD COUNT 4.01 10^6/uL (4.00-5.40); WHITE BLOOD COUNT 5.4 10^3/uL (4.0-10.0)
[2019-01-19 10:45] LABS: ALBUMIN 3.8 GM/DL (3.2-5.2); ALT/SGPT 26 U/L (12-78); BILIRUBIN,DIRECT 0.2 MG/DL (0.0-0.2); BILIRUBIN,TOTAL 0.6 MG/DL (0.2-1.0); BLOOD UREA NITROGEN 18 MG/DL (7-18); CALCIUM LEVEL 9.5 MG/DL (8.8-10.2); CARBON DIOXIDE LEVEL 30 MEQ/L (21-32); CHLORIDE LEVEL 106 MEQ/L (98-107); CREATININE FOR GFR 0.69 MG/DL (0.55-1.30); GLOMERULAR FILTRATION RATE > 60.0 (>45); GLUCOSE, FASTING 102 MG/DL (70-100); POTASSIUM SERUM 4.1 MEQ/L (3.5-5.1); SODIUM LEVEL 141 MEQ/L (136-145); TOTAL PROTEIN 7.2 GM/DL (6.4-8.2)
[2019-01-19 12:27] VITALS: BP 159/71
--- NOTE | 2019-01-20 06:39 | REP ---
Pelvic sonography: History: Suprapubic pain. Findings: Transabdominal and transvaginal scanning are performed. Uterine dimensions are normal at 4.3 x 1.5 x 2.7 cm. Endometrial echo 0.2 cm thick. The uterus is retroverted. No focal uterine mass is seen. The right ovary could not be visualized transabdominally or transvaginally. No adnexal mass or cyst is seen. No free fluid is noted. The left ovary is normal in size measuring 1.7 x 1.1 x 0.7 cm. Doppler flow to the left ovary is observed with resistive index 0.73. Visualized urinary bladder decker are smooth. Impression: No abnormality noted. Right ovary not directly visualized. Normal left ovary and retroverted uterus. Electronically Signed by Wilfrido Ernst MD 01/20/2019 09:32 A
== END 2019-01-19 13:15 | disposition home or self-care (01) ==
LOC: M ED 09:20
DX: N32.81 Overactive bladder (principal); K21.9 Gastro-esophageal reflux disease without esophagitis; Z85.3 Personal history of malignant neoplasm of breast; Z72.0 Tobacco use; Z79.899 Other long term (current) drug therapy; Z88.6 Allergy status to analgesic agent; Z88.1 Allergy status to other antibiotic agents; Z91.89 Other specified personal risk factors, not elsewhere classified

== ENCOUNTER → 2019-05-28 | Outpatient (REF) | payer OTHER ==
[~2019-05-28] MED LIST changes: +MYRB50TA PO
[2019-05-28 18:58] LABS: FOLATE > 24.0 NG/ML; VITAMIN B12 LEVEL 505 PG/ML
== END ==
LOC: M SFHCADAM 11:31
PROVIDERS: ATTEND Physician Assistant
DX: D75.89 Other specified diseases of blood and blood-forming organs (principal)

== ENCOUNTER 2019-07-02 05:42 | Emergency (ER) | payer OTHER ==
[~2019-07-02] VITALS: Ht 167.6 cm; Wt 59.5 kg
[2019-07-02] MEDS ORDERED: IPRATROPIUM 0.5MG/ALBUTEROL 2.5MG INH SOL UD 3ML (DUONEB)(J7620) NEB ONE (07:30)
--- NOTE | 2019-07-02 08:12 | REP ---
Clinical: Productive cough . Comparison: 04/26/2012 Technique: PA and lateral. Findings: The mediastinum and cardiac silhouette are normal. The lung franklin are clear and without acute consolidation, effusion, or pneumothorax. The skeletal structures are intact and normal. Impression: 1. No acute cardiopulmonary process. Electronically Signed by René Cross MD 07/02/2019 08:03 A
[2019-07-02] MEDS ORDERED: BENZ200C70 PO (09:30)
[2019-07-02] MEDS ORDERED: MUCI600T31 PO (09:30)
[2019-07-02] MEDS ORDERED: AUGM875T28 PO (09:30)
[2019-07-02 09:54] VITALS: BP 142/76
== END 2019-07-02 09:56 | disposition home or self-care (01) ==
LOC: M ED 05:42
DX: J01.90 Acute sinusitis, unspecified (principal); J45.909 Unspecified asthma, uncomplicated; C50.019 Malignant neoplasm of nipple and areola, unspecified female breast; N35.92 Unspecified urethral stricture, female; K21.9 Gastro-esophageal reflux disease without esophagitis; K44.9 Diaphragmatic hernia without obstruction or gangrene; M54.9 Dorsalgia, unspecified; M81.0 Age-related osteoporosis without current pathological fracture; Z88.1 Allergy status to other antibiotic agents; Z88.6 Allergy status to analgesic agent; Z91.048 Other nonmedicinal substance allergy status; Z79.899 Other long term (current) drug therapy; Z79.51 Long term (current) use of inhaled steroids

== ENCOUNTER 2019-08-15 00:17 | Inpatient (IN) | payer OTHER ==
[~2019-08-15] VITALS: Ht 167.6 cm; Wt 59.4 kg
[~2019-08-15 00:17] MED LIST changes: +AUGM875T28 PO; +BENZ200C70 PO; +MUCI600T31 PO; -VENTAER IN; +VENTAER INH
[2019-08-15 01:00] LABS: BASO % 0.4 % (0.0-1.0); EOS # 0.1 10^3/uL (0.0-0.5); EOS % 0.7 % (0.0-3.0); HEMATOCRIT 37.4 % (36.0-47.0); HEMOGLOBIN 12.4 g/dl (12.0-15.5); LYMPH # 0.7 10^3/uL (1.5-5.0); LYMPH % 9.9 % (24.0-44.0); MEAN CORPUSCULAR HEMOGLOBIN 32.3 pg (27.0-33.0); MEAN CORPUSCULAR HGB CONC 33.2 g/dl (32.0-36.5); MEAN CORPUSCULAR VOLUME 97.4 fl (80.0-96.0); MONO # 0.5 10^3/uL (0.0-0.8); MONO % 7.4 % (0.0-5.0); NEUTROPHILS # 5.9 10^3/uL (1.5-8.5); NEUTROPHILS % 81.3 % (36.0-66.0); PLATELET COUNT, AUTOMATED 235 10^3/uL (150-450); RED BLOOD COUNT 3.84 10^6/uL (4.00-5.40); WHITE BLOOD COUNT 7.3 10^3/uL (4.0-10.0)
[2019-08-15 01:14] LABS: PROTHROMBIN TIME 12.9 SECONDS (11.8-14.0)
[2019-08-15 01:31] LABS: ALBUMIN 3.8 GM/DL (3.2-5.2); ALT/SGPT 619 U/L (12-78); BILIRUBIN,DIRECT 1.1 MG/DL (0.0-0.2); BILIRUBIN,TOTAL 1.5 MG/DL (0.2-1.0); CK-MB VALUE MASS 1.8 NG/ML (<3.6); CPK CREATINE PHOSPHOKINASE 90 U/L (26-192); LIPASE 16660 U/L (73-393); TOTAL PROTEIN 6.9 GM/DL (6.4-8.2); TROPONIN I < 0.02 NG/ML (< 0.10)
[2019-08-15] MEDS ORDERED: ISOVUE-370 76% 100ML VIAL (Q9967) As Ordered ONE (02:43)
[2019-08-15] MEDS ORDERED: MORPHINE 4 MG/ML 1ML VIAL/SYRINGE (J2270) IV PRN (02:45)
[2019-08-15] MEDS ORDERED: ONDANSETRON 4MG/2ML VIAL (J2405) IV ONE (02:45)
--- NOTE | 2019-08-15 03:17 | REPVR ---
PROCEDURE INFORMATION: Exam: CT Abdomen And Pelvis With Contrast Exam date and time: 08/15/2019 2:35 AM Age: 64 years old Clinical indication: Pain; Other: Chest; Additional info: New onset pancreatitis TECHNIQUE: Imaging protocol: Computed tomography of the abdomen and pelvis with intravenous contrast. Radiation optimization: All CT scans at this facility use at least one of these dose optimization techniques: automated exposure control; mA and/or kV adjustment per patient size (includes targeted exams where dose is matched to clinical indication); or iterative reconstruction. Contrast material: ISO; Contrast volume: 100 ml; Contrast route: AC; COMPARISON: CT ABD/PEL W/IV ORAL CONTRAS 02/13/2018 6:20 AM FINDINGS: Lungs: Mild bibasilar dependent atelectasis. Liver: Normal. No mass. Gallbladder and bile ducts: Status post cholecystectomy. Extensive intra and extrahepatic biliary ductal dilatation to the level of the ampulla. No obstructing calculus is appreciated. Pancreas: Mild nonspecific dilatation of the pancreatic duct. There is generalized edema of the pancreatic parenchyma with mild stranding of the adjacent fat. Spleen: Normal. No splenomegaly. Adrenals: Normal. No mass. Kidneys and ureters: Normal. No hydronephrosis. Stomach and bowel: Status post sigmoidectomy. Diverticulosis of the colon. No evidence of acute diverticulitis. Appendix: No evidence of appendicitis. Intraperitoneal space: Unremarkable. No free air. No significant fluid collection. Vasculature: Atherosclerotic disease of the abdominal aorta. Lymph nodes: Unremarkable. No enlarged lymph nodes. Bladder: Distended urinary bladder. Reproductive: Status post hysterectomy. Bones/joints: Mild stenosis of the spinal canal at L2-L3. Degenerative disc disease and facet hypertrophy in the lower lumbar spine. Severe degenerative changes in the bilateral hips, worse on the left. Soft tissues: Fat containing umbilical hernia. IMPRESSION: 1. Mild nonspecific dilatation of the pancreatic duct. There is generalized edema of the pancreatic parenchyma with mild stranding of the adjacent fat. Acute pancreatitis is suspected. 2. Status post cholecystectomy. Extensive intra and extrahepatic biliary ductal dilatation to the level of the ampulla. No obstructing calculus is appreciated. Electronically signed by: Tono Cabrera On 08/15/2019 03:16:54 AM
--- NOTE | 2019-08-15 04:01 | REPVR ---
PROCEDURE INFORMATION: Exam: US Abdomen Limited, Right Upper Quadrant Exam date and time: 08/15/2019 3:06 AM Age: 64 years old Clinical indication: Abdominal pain; Prior surgery; Surgery date: 6+ months; Additional info: Ruq pain, pancreatitis, eval for cbd stone TECHNIQUE: Imaging protocol: Real-time ultrasound of the abdomen with image documentation. Examination was focused on the right upper quadrant. COMPARISON: CT ABD/PEL W/IV CONTRAST ONLY 08/15/2019 2:46 AM FINDINGS: Liver: Normal. No masses. Gallbladder: Status post cholecystectomy. Common bile duct: Markedly dilated proximal common bile duct. Extensive intrahepatic biliary ductal dilatation. No clear evidence of choledocholithiasis on these images. Pancreas: Dilated pancreatic duct with mild pancreatic parenchymal edema. Right kidney: Normal. No mass. No hydronephrosis. IMPRESSION: Status post cholecystectomy. Markedly dilated proximal common bile duct. Extensive intrahepatic biliary ductal dilatation. No clear evidence of choledocholithiasis on these images. Electronically signed by: Tono Cabrera On 08/15/2019 04:00:41 AM
--- NOTE | 2019-08-15 05:08 | HPEPDOC ---
[facility] Medical History & Physical Date of Admission Aug 15, 2019 Date of Service: Aug 15, 2019 Primary Care Physician: JAYA TRINH PA-C Attending Physician: Maico Trinh MD History and Physical TIME OF SERVICE: 540AM CHIEF COMPLAINT: Abdominal pain HISTORY OF PRESENT ILLNESS: This is a 64-year-old female who presents with complaints of epigastric abdominal pain that she's had since June. She decided to come in today because the pain did not resolve after 1 hour. Occasionally does. This time the pain has been persistent for 12 hours, and is 8 out of 10 in severity. The pain is made worse by eating and improved after she received morphine in the ER. She denies having seated, nausea, vomiting, diarrhea, fevers or chills. She has lost weight, which she attributes to changing her diet as she thought the pain was related to acid reflux. Her stools have been creamy in color since the end of July. REVIEW OF SYSTEMS: 12 point review of systems negative except as listed in HPI PAST MEDICAL/ SURGICAL HISTORY: Chronic asthma. Hiatal hernia. Urethral stricture with history of cystoscopy and urethral dilation/overactive bladder. Benign stomach polyps Osteoporosis, status post left hip stress fracture Aortic sclerosis Vitamin D deficiency. Diverticulitis Left breast cancer status post lumpectomy and chemotherapy Status post cholecystectomy This post tubal ligation. Status post appendectomy. Status post partial colectomy SOCIAL HISTORY: Doesn't smoke. Doesn't drink. Doesn't use recreational drugs. Is FAMILY HISTORY: Abdominal aneurysm. Rheumatic heart disease. Brain aneurysm. Anal cancer. Colon cancer. Alcoholism ALLERGIES: Please see below. HOME MEDICATIONS: Please see below. PHYSICAL EXAMINATION: VITAL SIGNS: Please see below. GEN: well-nourished / well developed/ NAD INTEGUMENT: not flushed/ not jaundice /she has well-healed scars from an open cholecystectomy open appendectomy along with all her post laparoscopy scars HEENT: NCAT / lips acyanotic /mucus membranes moist and pink CVS: RRR/NMRG/no lower extremity edema LUNGS: clear to auscultation bilaterally on room air ABDOMEN: Contour (flat) / the abdomen is tympanic on percussion, soft & not tender with palpation MSK/EXTREMITIES: range of motion intact in all 4 extremities NEURO: CN 2-12 are grossly intact / speech is not dysarthric PSYCH: alert and oriented to person place and time/ able to understand and follow all commands LABORATORY DATA: See below. IMAGING: Liver ultrasound " IMPRESSION: Status post cholecystectomy. Markedly dilated proximal common bile duct. Extensive intrahepatic biliary ductal dilatation. No clear evidence of choledocholithiasis on these images. " CT abdomen and pelvis " IMPRESSION: 1. Mild nonspecific dilatation of the pancreatic duct. There is generalized edema of the pancreatic parenchyma with mild stranding of the adjacent fat. Acute pancreatitis is suspected. 2. Status post cholecystectomy. Extensive intra and extrahepatic biliary ductal dilatation to the level of the ampulla. No obstructing calculus is appreciated. " ASSESSMENT: Ms. George is a 64-year-old female the past medical history of asthma, hiatal hernia, urethral stricture requiring dilatation, benign stomach polyps, osteoporosis, diverticulitis, and multiple abdominal surgeries who is admitted for management of pancreatitis associated with transaminitis. PLAN: 1. Pancreatitis The diagnosis is made on the basis of abdominal pain + elevated lipase + CT findings c/w pancreatitis Likely related to biliary tree obstruction less likely due to an autoimmune condition, hyperlipidemia, or ethanol Reports from US of the liver/ gallbladder & CT abdomen reviewed Harmless Acute Pancreatitis Score to r/o need for ICU admission for 1st episode of pancreatitis = 0 points= not severe pancreatitis Plan: Admit to medical floor NPO/ IVF / f/u serum ETO, lipid panel / IV toradol & morphine PRN for pain / pending MRCP GI consult 2. Transaminitis -Plan: Trend LFTs, follow-up hepatitis panel & CHAPITO 3. Chronic asthma - Plan: Albuterol, Singulair, Advair 4. Hiatal hernia - Plan: IV PPI DVT PROPHYLAXIS: Heparin DISPOSITION: Home. After more than 2 midnight stay Vital Signs Vital Signs Date Time Temp Pulse Resp B/P (MAP) Pulse Ox O2 Delivery O2 Flow Rate FiO2 08/15/19 04:31 83 97 08/15/19 04:15 143/80 (101) 08/15/19 02:44 20 08/15/19 00:40 Room Air 08/15/19 00:31 96.9 Laboratory Data Labs 24H Laboratory Tests 2 08/15/19 00:46: Immature Granulocyte % (Auto) 0.3, Neutrophils (%) (Auto) 81.3H, Lymphocytes (%) (Auto) 9.9L, Monocytes (%) (Auto) 7.4H, Eosinophils (%) (Auto) 0.7, Basophils (%) (Auto) 0.4, Neutrophils # (Auto) 5.9, Lymphocytes # (Auto) 0.7L, Monocytes # (Auto) 0.5, Eosinophils # (Auto) 0.1, Basophils # (Auto) 0.0, Nucleated Red Blood Cells % (auto) 0.0, Prothrombin Time 12.9, Prothromb Time International Ratio 1.00, Total Bilirubin 1.5H, Direct Bilirubin 1.1H, Aspartate Amino Transf (AST/SGOT) 917H, Alanine Aminotransferase (ALT/SGPT) 619H, Alkaline Phosphatase 345H, Total Creatine Kinase 90, Creatine Kinase MB 1.8, Creatine Kinase MB Relative Index 2.00, Troponin I < 0.02, Total Protein 6.9, Albumin 3.8, Albumin/Globulin Ratio 1.23, Lipase 64694P 08/15/19 00:51: POC Glucose (Misc Panel) 162H, POC Sodium (Misc Panel) 137, POC Potassium (Misc Panel) 3.7, POC Chloride (Misc Panel) 99, POC Total CO2 (Misc Panel) 29.0H, POC Blood Urea Nitrogen (Misc Panel 11, POC Ionized Calcium (Misc Panel) 4.9, POC Creatinine (Misc Panel) 0.5L, POC Hematocrit (Misc Panel) 38.0 CBC/BMP Laboratory Tests 08/15/19 00:46 Home Medications Scheduled Anastrozole (Anastrozole) 1 Mg Tab, 1 MG PO DAILY Calcium Carbonate/Vitamin D3 (Calcium 600-Vit D3 200 Tablet) 1 Tab Tab, 1 TAB PO BID Cholecalciferol (Vitamin D3) (Vitamin D3) 10 Mcg Tablet, 10 MCG PO DAILY Esomeprazole Magnesium (Nexium) 40 Mg Cap, 40 MG PO DAILY FIRST THING IN MORNING Gluc Valencia/Chondro Valencia A/Vit C/Mn (Glucosamine Chondroitin Tab) 1 Each Tablet, 1 TAB PO BID Mirabegron (Myrbetriq) 50 Mg Tab.er.24h, 50 MG PO QPM TAKES AT 1630 Montelukast Sodium (Singulair) 10 Mg Tab, 10 MG PO QHS Multivitamins (Thera M Plus Tablet) 1 Each Tablet, 1 TAB PO DAILY Polyethylene Glycol 3350 (Miralax) 17 Gm Powd.pack, 8.5 GM PO QHS Salmeterol/Fluticasone (Advair 100-50 Diskus) 28 Puff/Inhaler Aerp, 1 PUFF INH BID Scheduled PRN Albuterol Sulfate (Ventolin Hfa) 108 Mcg/Act Aer, 2 PUFFS INH Q6H PRN for SHORTNESS OF BREATH Fluticasone Propionate (Flonase Allergy Relief) 9.9 Ml [place].susp, 1 SPRAY NA DAILY PRN for NASAL CONGESTION Guaifenesin (Mucinex) 600 Mg Tab.er.12h, 600 MG PO BID PRN for CONGESTION Allergies Coded Allergies: SMOKE (Verified Adverse Reaction, Intermediate, ASTHMA, 07/30/18) metronidazole (Verified Adverse Reaction, Intermediate, UPSET STOMACH, 08/15/19) ibuprofen (Verified Adverse Reaction, Unknown, N+V, 10/10/18) tetracycline (Verified Adverse Reaction, Unknown, N+V, 10/10/18) A-FIB/CHADSVASC A-FIB History Current/History of A-Fib/PAF?: No Current PO Anticoag Therapy: No LOLY AHUMADA MD Aug 15, 2019 05:08
[2019-08-15] MEDS ORDERED: KETOROLAC 30 MG/ML VIAL (J1885) IV PRN (05:30)
[2019-08-15] MEDS ORDERED: MORPHINE 2 MG/ML 1ML VIAL (J2270) IV PRN (05:30)
[2019-08-15] MEDS ORDERED: VITMTA PO (05:41)
[2019-08-15] MEDS ORDERED: VITA1TAB26 PO (05:41)
[2019-08-15] MEDS ORDERED: MUCI600T31 PO (05:42)
[2019-08-15] MEDS ORDERED: GLUCTAB6 PO (05:42)
[2019-08-15] MEDS ORDERED: MYRB50TA PO (05:42)
[2019-08-15] MEDS ORDERED: FLON1SPR (05:42)
[2019-08-15] MEDS ORDERED: MIRA1POW3 PO (05:42)
[2019-08-15] MEDS: HEPARIN SOD (PORCINE) 5000 UNITS/ML VIAL (J1644 PER 1000UNITS) SQ SCH ×3 (06:00→21:50)
[2019-08-15] MEDS ORDERED: FLUTICASONE PROP 0.05% NASAL SPRAY 16 GM (FLONASE) PRN (06:45)
[2019-08-15] MEDS ORDERED: ALBUTEROL 90 MCG/ACT 8GM HFA INHALER INH PRN (06:45)
[2019-08-15] MEDS: NS 1,000 ML IV SCH ×3 (08:00→22:18)
[2019-08-15] MEDS ORDERED: LORazepam 2 MG/ML VIAL (J2060) IV ONE ×2 (08:00→20:45)
[2019-08-15 08:05] LABS: CHOLESTEROL LEVEL 183 MG/DL (<200); CHOLESTEROL RISK RATIO 2.541 (<5); ETHYL ALCOHOL (ETHANOL) < 0.003 % (0.000-0.010); HDL CHOLESTEROL 72 MG/DL (>40); LDL CHOLESTEROL 104 MG/DL (<100); NON-HDL-C 111 MG/DL; TRIGLYCERIDES LEVEL 37 MG/DL (<150)
[2019-08-15 08:40] VITALS: BP 124/79
[2019-08-15 08:59] LABS: BASO # 0.1 10^3/uL (0.0-0.2); BASO % 0.8 % (0.0-1.0); EOS % 0.6 % (0.0-3.0); HEMATOCRIT 38.5 % (36.0-47.0); HEMOGLOBIN 12.8 g/dl (12.0-15.5); LYMPH # 0.9 10^3/uL (1.5-5.0); LYMPH % 13.8 % (24.0-44.0); MEAN CORPUSCULAR HEMOGLOBIN 32.6 pg (27.0-33.0); MEAN CORPUSCULAR HGB CONC 33.2 g/dl (32.0-36.5); MONO # 0.6 10^3/uL (0.0-0.8); MONO % 9.1 % (0.0-5.0); NEUTROPHILS # 4.7 10^3/uL (1.5-8.5); NEUTROPHILS % 75.4 % (36.0-66.0); PLATELET COUNT, AUTOMATED 239 10^3/uL (150-450); RED BLOOD COUNT 3.93 10^6/uL (4.00-5.40); WHITE BLOOD COUNT 6.2 10^3/uL (4.0-10.0)
[2019-08-15] MEDS ORDERED: ENOXAPARIN 40 MG/0.4 ML SYRINGE (J1650) SC SCH (09:00)
[2019-08-15] MEDS: ADVAIR HFA 45/21MCG INHALER INH SCH ×2 (09:22→21:22)
--- NOTE | 2019-08-15 09:24 | IPNPDOC ---
Subjective Date Seen The patient was seen on 08/15/19. Subjective Chief Complaint/HPI pancreatitis Events since last encounter Patient notes improved abdominal pain today. Planned MRCP today due to biliary ductal dilatation. ENT: Denies: Head Aches, Ear Pain, Dysphagia Skin: Denies: Rash, Lesions, Breakdown Pulmonary: Denies: Dyspnea, Cough Cardiovascular: Denies: Chest Pain, Palpitations, Orthopnea, Paroxysmal Noc. Dyspnea, Lt Headedness Gastrointestinal: Reports: Nausea, Abdominal Pain Genitourinary: Denies: Dysuria, Frequency, Incontinence, Retention Psych: Reports: Mood Normal; Denies: Depression, Memory Issues Objective Physical Examination General Exam: Positive: Alert, No Acute Distress Chest Exam: Positive: Clear to auscultation, Normal air movement Heart Exam: Positive: Rate Normal, Regular Rhythm, Normal S1, Normal S2; Negative: Murmurs, Rubs Abdomen Exam: Positive: Normal bowel sounds, Soft, Tenderness (epigastric); Negative: Hepatospenomegaly Psych Exam: Positive: Mental status NL, Mood NL, Oriented x 3 Assessment /Plan Problems (1) Pancreatitis Status: Acute Problem Text: repeat labs pending. keep NPO. IVF: NS at 125 cc per hour (2) Common bile duct dilatation Status: Acute Problem Text: MR abdomen today. 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 no labs or BP in left arm. Plan/VTE VTE Prophylaxis Ordered?: Yes VS, I&O, 24H, Fishbone Vital Signs/I&O Vital Signs Date Time Temp Pulse Resp B/P (MAP) Pulse Ox O2 Delivery O2 Flow Rate FiO2 08/15/19 08:40 97.4 86 14 124/79 (94) 98 Room Air Laboratory Data 24H LABS Laboratory Tests 2 08/15/19 00:46: Immature Granulocyte % (Auto) 0.3, Neutrophils (%) (Auto) 81.3H, Lymphocytes (%) (Auto) 9.9L, Monocytes (%) (Auto) 7.4H, Eosinophils (%) (Auto) 0.7, Basophils (%) (Auto) 0.4, Neutrophils # (Auto) 5.9, Lymphocytes # (Auto) 0.7L, Monocytes # (Auto) 0.5, Eosinophils # (Auto) 0.1, Basophils # (Auto) 0.0, Nucleated Red Blood Cells % (auto) 0.0, Prothrombin Time 12.9, Prothromb Time International Ratio 1.00, Total Bilirubin 1.5H, Direct Bilirubin 1.1H, Aspartate Amino Transf (AST/SGOT) 917H, Alanine Aminotransferase (ALT/SGPT) 619H, Alkaline Phosphatase 345H, Total Creatine Kinase 90, Creatine Kinase MB 1.8, Creatine Kinase MB Relative Index 2.00, Troponin I < 0.02, Total Protein 6.9, Albumin 3.8, Albumin/Globulin Ratio 1.23, Triglycerides Level 37, Total Cholesterol 183, LDL Cholesterol 104H, Non-HDL Cholesterol (LDL + VLDL) 111, Total HDL Cholesterol 72, Cholesterol/HDL Ratio 2.541, Lipase 19823W, Ethyl Alcohol Level < 0.003 08/15/19 00:51: POC Glucose (Misc Panel) 162H, POC Sodium (Misc Panel) 137, POC Potassium (Misc Panel) 3.7, POC Chloride (Misc Panel) 99, POC Total CO2 (Misc Panel) 29.0H, POC Blood Urea Nitrogen (Misc Panel 11, POC Ionized Calcium (Misc Panel) 4.9, POC Creatinine (Misc Panel) 0.5L, POC Hematocrit (Misc Panel) 38.0 08/15/19 08:33: Immature Granulocyte % (Auto) 0.3, Neutrophils (%) (Auto) 75.4H, Lymphocytes (%) (Auto) 13.8L, Monocytes (%) (Auto) 9.1H, Eosinophils (%) (Auto) 0.6, Basophils (%) (Auto) 0.8, Neutrophils # (Auto) 4.7, Lymphocytes # (Auto) 0.9L, Monocytes # (Auto) 0.6, Eosinophils # (Auto) 0.0, Basophils # (Auto) 0.1, Nucleated Red Blood Cells % (auto) 0.0 CBC/BMP Laboratory Tests 08/15/19 00:46 08/15/19 08:33 Trice Corona MOTH EXTERMINATOR Aug 15, 2019 09:24
[2019-08-15] MEDS: PANTOPRAZOLE 40MG INJ (PROTONIX) (C9113) IV SCH (09:30)
[2019-08-15 09:37] LABS: ALBUMIN 3.7 GM/DL (3.2-5.2); ALT/SGPT 924 U/L (12-78); BILIRUBIN,TOTAL 2.3 MG/DL (0.2-1.0); BLOOD UREA NITROGEN 10 MG/DL (7-18); CALCIUM LEVEL 8.8 MG/DL (8.8-10.2); CARBON DIOXIDE LEVEL 29 MEQ/L (21-32); CHLORIDE LEVEL 105 MEQ/L (98-107); CREATININE FOR GFR 0.56 MG/DL (0.55-1.30); GLOMERULAR FILTRATION RATE > 60.0 (>45); GLUCOSE, FASTING 103 MG/DL (70-100); LIPASE 13403 U/L (73-393); POTASSIUM SERUM 3.9 MEQ/L (3.5-5.1); SODIUM LEVEL 140 MEQ/L (136-145); TOTAL PROTEIN 6.7 GM/DL (6.4-8.2)
--- NOTE | 2019-08-15 13:10 | REP ---
Clinical: Chest pain . Comparison: 07/02/2019 . Findings: The mediastinum and cardiac silhouette are stable and within normal limits for portable technique. The lung franklin are clear without acute consolidation, effusion, or pneumothorax. Skeletal structures are intact. Impression: No acute cardiopulmonary process appreciated. Electronically Signed by René Cross MD 08/15/2019 01:02 P
[2019-08-15 14:00] VITALS: BP 128/88
--- NOTE | 2019-08-15 15:14 | ECGEPIP ---
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
[2019-08-15 18:00] VITALS: BP 135/87
[2019-08-15] MEDS: MONTELUKAST 10 MG TAB PO SCH ×2 (21:00→22:18)
[2019-08-15 22:00] VITALS: BP 136/68
[2019-08-16] VITALS (11 sets, daily range): BP systolic 126–152; BP diastolic 62–75
[2019-08-16] MEDS: NS 1,000 ML IV SCH ×3 (03:13→21:21)
[2019-08-16] MEDS: HEPARIN SOD (PORCINE) 5000 UNITS/ML VIAL (J1644 PER 1000UNITS) SQ SCH ×3 (05:28→21:21)
[2019-08-16 06:23] LABS: HEMATOCRIT 37.4 % (36.0-47.0); HEMOGLOBIN 11.9 g/dl (12.0-15.5); MEAN CORPUSCULAR HEMOGLOBIN 31.9 pg (27.0-33.0); MEAN CORPUSCULAR HGB CONC 31.8 g/dl (32.0-36.5); MEAN CORPUSCULAR VOLUME 100.3 fl (80.0-96.0); PLATELET COUNT, AUTOMATED 218 10^3/uL (150-450); RED BLOOD COUNT 3.73 10^6/uL (4.00-5.40); WHITE BLOOD COUNT 4.9 10^3/uL (4.0-10.0)
[2019-08-16 06:55] LABS: ALBUMIN 3.3 GM/DL (3.2-5.2); ALT/SGPT 635 U/L (12-78); BILIRUBIN,TOTAL 0.9 MG/DL (0.2-1.0); BLOOD UREA NITROGEN 14 MG/DL (7-18); CALCIUM LEVEL 8.6 MG/DL (8.8-10.2); CARBON DIOXIDE LEVEL 23 MEQ/L (21-32); CHLORIDE LEVEL 110 MEQ/L (98-107); CREATININE FOR GFR 0.46 MG/DL (0.55-1.30); GLOMERULAR FILTRATION RATE > 60.0 (>45); GLUCOSE, FASTING 53 MG/DL (70-100); MAGNESIUM LEVEL 1.9 MG/DL (1.8-2.4); POTASSIUM SERUM 3.4 MEQ/L (3.5-5.1); SODIUM LEVEL 141 MEQ/L (136-145); TOTAL PROTEIN 6.4 GM/DL (6.4-8.2)
[2019-08-16] MEDS: ADVAIR HFA 45/21MCG INHALER INH SCH ×2 (07:44→18:37)
--- NOTE | 2019-08-16 08:01 | REP ---
MRCP EXAM: MRI abdomen without contrast: HISTORY: Pancreatitis and transaminitis. Biliary ductal dilation on hepatic sonography and CT study from August 15, 2019. Comparison CTs are also reviewed from September 27, 2018 and February 13, 2018. These studies show biliary ductal dilation as well. The patient is post cholecystectomy. TECHNIQUE: Axial and coronal T2-weighted scans were obtained along with MRCP exam. Maximal intensity projection images are generated and reviewed. MRCP FINDINGS: There is mild intrahepatic biliary ductal dilation. There is moderate extrahepatic biliary dilation. The common hepatic duct measures up to 2.0 cm in transverse dimension. There is an oval-shaped low T2 signal intensity calculus in the common bile duct just above the ampule. This measures 1.6 cm in length x 0.9 cm in transverse dimension. No pancreatic mass lesion is seen. There is mild prominence of the pancreatic duct. No other filling defect is seen in the choledocholiths. Study is otherwise unremarkable. IMPRESSION: Choledocholithiasis with moderate extrahepatic and mild intrahepatic biliary ductal dilation. There is a single fairly large biliary calculus in the distal common bile duct. Electronically Signed by Wilfrido Ernst MD 08/16/2019 08:12 A
[2019-08-16] MEDS: ANASTROZOLE 1 MG PO SCH (09:38)
[2019-08-16] MEDS: PANTOPRAZOLE 40MG INJ (PROTONIX) (C9113) IV SCH (09:38)
--- NOTE | 2019-08-16 09:52 | IPNPDOC ---
Subjective Date Seen The patient was seen on 08/16/19. Subjective Chief Complaint/HPI Pt this morning reports that her abd pain has nearly resolved. Denies N/V. No fevers. No new concerns. Was seen by Dr Perdomo last night, no notes available. General: Denies: Fatigue Constitutional: Denies: Chills, Fever Pulmonary: Denies: Dyspnea, Cough Cardiovascular: Denies: Chest Pain, Palpitations Gastrointestinal: Denies: Nausea, Vomiting, Abdominal Pain Neurological: Denies: Weakness Psych: Reports: Mood Normal Objective Physical Examination General Exam: Positive: Alert, No Acute Distress ENT Exam: Positive: Mucous membr. moist/pink Chest Exam: Positive: Clear to auscultation, Normal air movement Heart Exam: Positive: Rate Normal, Regular Rhythm, Normal S1, Normal S2; Negative: Murmurs, Rubs Abdomen Exam: Positive: Normal bowel sounds, Soft; Negative: Tenderness, Hepatospenomegaly Psych Exam: Positive: Mental status NL, Mood NL, Oriented x 3 Assessment /Plan Problems (1) Pancreatitis Status: Acute Problem Text: Remains NPO. IVF: NS at 125 cc per hour, MRI Abd reveals choledocholelithiasis, GI has been consulted, Dr Perdomo saw the pt yesterday, await further input. Pain has resolved, she hasn't taken any pain meds. (2) Common bile duct dilatation Status: Acute Problem Text: MRI abdomen reveals choledocholelithiasis with ductal dilatation, pt has been seen by GI. 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 no labs or BP in left arm. Plan/VTE VTE Prophylaxis Ordered?: Yes VS, I&O, 24H, Fishbone Vital Signs/I&O Vital Signs Date Time Temp Pulse Resp B/P (MAP) Pulse Ox O2 Delivery O2 Flow Rate FiO2 08/16/19 06:00 97.6 84 16 129/69 (89) 97 Room Air I&O- Last 24 Hours up to 6 AM 08/16/19 05:59 Intake Total 1913 ml Output Total 700 ml Balance 1213 ml Laboratory Data 24H LABS Laboratory Tests 2 08/15/19 14:43: Bedside Glucose (Misc Panel) 77L 08/16/19 05:52: Nucleated Red Blood Cells % (auto) 0.0, Anion Gap 8, Glomerular Filtration Rate > 60.0, Calcium Level 8.6L, Magnesium Level 1.9, Total Bilirubin 0.9#, Aspartate Amino Transf (AST/SGOT) 398H, Alanine Aminotransferase (ALT/SGPT) 635H, Alkaline Phosphatase 347H, Total Protein 6.4, Albumin 3.3, Albumin/Globulin Ratio 1.06 CBC/BMP Laboratory Tests 08/16/19 05:52 NICOLE BASURTO PA-C Aug 16, 2019 09:52
[2019-08-16 11:58] LABS: HEPATITIS B SURFACE ANTIGEN NEGATIVE (NEGATIVE)
[2019-08-16 14:00] LABS: HEPATITIS C VIRUS ABY INDEX < 0.0 INDEX (<0.8)
[2019-08-16 14:02] LABS: HEPATITIS B CORE ANTIBODY IGM NEGATIVE (NEGATIVE)
[2019-08-16 14:03] LABS: HEPATITIS A ANTIBODY IGM NEGATIVE (NEGATIVE)
[2019-08-16] MEDS ORDERED: ROCURONIUM BROMIDE 50 MG/5 ML VIAL As Ordered ONE (14:07)
[2019-08-16] MEDS ORDERED: LIDOCAINE 2% INJ 100 MG/5 ML SDV (FOR ANES.) As Ordered ONE (14:07)
[2019-08-16] MEDS ORDERED: propofoL 200 MG/20 ML VIAL As Ordered ONE (14:07)
[2019-08-16] MEDS ORDERED: fentaNYL 100 MCG/2 ML INJECTION (J3010) As Ordered ONE (14:07)
[2019-08-16] MEDS ORDERED: MIDAZOLAM INJ 2 MG/2 ML VIAL (J2250) As Ordered ONE (14:08)
[2019-08-16] MEDS ORDERED: ISOVUE-300 61% 50ML VIAL (Q9967) As Ordered ONE (14:24)
[2019-08-16] MEDS ORDERED: dexameTHASONE 4 MG/ML 1ML VIAL (J1100) As Ordered ONE (15:20)
[2019-08-16] MEDS ORDERED: ONDANSETRON 4MG/2ML VIAL (J2405) As Ordered ONE (15:21)
--- NOTE | 2019-08-16 16:04 | ROOR ---
Patient Name: Yuri George Procedure Date: 08/16/2019 2:58 PM Date of : 1955 Age: 64 Room: Main OR Gender: Female Note Status: Finalized Procedure: ERCP + Papillotomy + Balloon Sweep Indications: Bile duct stone(s), Abnormal MRCP, Acute pancreatitis, For therapy of acute pancreatitis, Gallstone associated acute pancreatitis Providers: Mehul Perdomo MD Referring MD: 2. Inpatient 2. Inpatient, Maico Trinh MD Requesting Provider: Medicines: General Anesthesia Complications: No immediate complications. Procedure: Pre-Anesthesia Assessment: - The heart rate, respiratory rate, oxygen saturations, blood pressure, adequacy of pulmonary ventilation, and response to care were monitored throughout the procedure. The Duodenoscope was introduced through the mouth, and advanced to the duodenum and used to inject contrast into the bile duct. The ERCP was accomplished without difficulty. The patient tolerated the procedure well. Findings: The upper GI tract was traversed under direct vision without detailed examination. The major papilla was normal. The bile duct was deeply cannulated with the short-nosed traction sphincterotome. Contrast was injected. I personally interpreted the bile duct images. Ductal flow of contrast was adequate. Image quality was adequate. Contrast extended to the entire biliary tree. Opacification of the lower third of the main bile duct and common bile duct was successful. A short 0.035 inch Soft Jagwire was passed into the biliary tree. Biliary sphincterotomy was made with a monofilament traction (standard) sphincterotome using ERBE electrocautery. There was no post-sphincterotomy bleeding. The biliary tree was swept with a 12 mm balloon and 15 mm balloon starting at the bifurcation. Sludge was swept from the duct. All stones were removed. Impression: - Choledocholithiasis was found. Complete removal was accomplished by biliary sphincterotomy and balloon extraction. - A biliary sphincterotomy was performed. - The biliary tree was swept. - The examination was otherwise normal. Recommendation: - Avoid aspirin and nonsteroidal anti-inflammatory medicines for 2 weeks. - [facility] for [facility] care. - Watch for pancreatitis, bleeding, perforation, and cholangitis. - Advance diet as tolerated. - The findings and recommendations were discussed with the patient. Mehul Perdomo MD Mehul Perdomo MD 08/16/2019 4:04:05 PM Electronically signed by Mehul Perdomo MD Number of Addenda: 0 Note Initiated On: 08/16/2019 2:58 PM Estimated Blood Loss: Estimated blood loss: none.
[2019-08-16] MEDS ORDERED: ONDANSETRON 4MG/2ML VIAL (J2405) IV PRN (16:30)
[2019-08-16] MEDS ORDERED: METOCLOPRAMIDE INJ 10MG/2ML VIAL (J2765) IV PRN (16:30)
[2019-08-16] MEDS ORDERED: LR 1,000 ML IV SCH (16:30)
[2019-08-16] MEDS ORDERED: fentaNYL 100 MCG/2 ML INJECTION (J3010) IV PRN (16:30)
[2019-08-16] MEDS ORDERED: PERCOCET 5MG/325MG TAB PO PRN (16:30)
--- NOTE | 2019-08-16 16:41 | REP ---
ERCP: 17 views. History: ERCP. 3 minutes 7 seconds of fluoroscopy time is reported. Findings: A sequence of 17 last image hold fluoroscopically obtained spot radiographs of the right upper quadrant taken endoscopically document endoscopic cannulation, contrast injection, balloon catheter manipulation of the common bile duct. There is moderate dilation of the proximal common hepatic duct segment. One of the early images demonstrate a filling defect in the distal choledochus consistent with the common bile duct stone. Electronically Signed by Wilfrido Ernst MD 08/16/2019 10:08 P
--- NOTE | 2019-08-16 20:36 | CR ---
DATE OF CONSULTATION: 08/15/2019 This is a 64-year-old white female who is being seen by GI for evaluation of epigastric pain of unclear etiology. The patient was doing well until approximately June when she was having intermittent bouts of epigastric pain. She presented now with persistent pain lasting at least 12 hours, 8 out of 10 in severity. The patient states that eating made her pain worse. She denied any history of nausea, vomiting, fevers, night sweats or shaking chills. The patient has not lost any weight, has no dysphagia. REVIEW OF SYSTEMS: 12-point review of systems is noncontributory to the above problem. PAST MEDICAL HISTORY: Positive for asthma, hiatal hernia, ureteral stricture, benign stomach polyps, osteoporosis, aortic sclerosis, vitamin D deficiency, diverticulitis, status post cholecystectomy, status post appendectomy and status post partial colectomy. SOCIAL HISTORY: Cigarettes, alcohol and drugs were negative. FAMILY HISTORY Positive for abdominal aortic aneurysm, rheumatic heart disease, brain aneurysm, anal cancer, colon cancer, alcoholism. ALLERGIES: As above. PHYSICAL EXAMINATION General: Well-developed, well-nourished white female in no obvious acute distress. Appears stated age. Chest is clear to auscultation. Cardiovascular exam showed regular rhythm. No murmurs or gallops. Normal physiological split, S1, S2. Abdomen: Soft, positive for gastric tenderness. No hepatosplenomegaly. Bowel sounds positive. LABS: Laboratory studies on admission showed a white count of 7300, H and H is normal at 12 and 37. The patient's coagulation profile was normal. Chemistry on admission showed a total bilirubin 1.5, AST was 917, ALT 619, alkaline phosphatase was 345. The patient's labs have come down on 08/16/2019 with total bilirubin 0.9. Transaminases have fallen to 398, 635 and 347. The patient also had an elevated lipase of over 16,000 on admission. ANALYSIS: Epigastric pain consistent with gallstone pancreatitis. The patient had laboratory studies, imaging studies including an abdominal CT which showed a mildly dilated pancreatic duct. There was no edema. The parenchyma consistent with pancreatitis. The patient is status post cholecystectomy and she does have extensive intra- and extrahepatic biliary dilatation to the level of ampulla. No common bile duct stones could be appreciated based on CT. The patient also had a gallbladder ultrasound which described the patient's gallbladder as being gone. She had mildly dilated proximal common bile duct, extensive intrahepatic biliary dilatation. No evidence of choledocholithiasis was seen. RECOMMENDATION: The recommendation on this patient will be to proceed with MRCP and based on the patient's MRCP, determine whether she has an ERCP and papillotomy. If we do find a common bile duct stone on the MRCP, we will proceed with an ERCP, papillotomy and balloon placement.
[2019-08-16] MEDS ORDERED: MIRABEGRON 50 MG PO SCH (21:00)
[2019-08-16] MEDS: MONTELUKAST 10 MG TAB PO SCH (21:21)
[2019-08-17 02:00] VITALS: BP 126/79
[2019-08-17] MEDS: HEPARIN SOD (PORCINE) 5000 UNITS/ML VIAL (J1644 PER 1000UNITS) SQ SCH ×2 (05:42→15:16)
[2019-08-17] MEDS: NS 1,000 ML IV SCH (05:42)
[2019-08-17 06:00] VITALS: BP 134/73
[2019-08-17 06:02] LABS: BASO % 0.2 % (0.0-1.0); HEMATOCRIT 34.2 % (36.0-47.0); HEMOGLOBIN 11.5 g/dl (12.0-15.5); LYMPH # 0.8 10^3/uL (1.5-5.0); LYMPH % 15.8 % (24.0-44.0); MEAN CORPUSCULAR HEMOGLOBIN 32.7 pg (27.0-33.0); MEAN CORPUSCULAR HGB CONC 33.6 g/dl (32.0-36.5); MEAN CORPUSCULAR VOLUME 97.2 fl (80.0-96.0); MONO # 0.4 10^3/uL (0.0-0.8); MONO % 7.2 % (0.0-5.0); NEUTROPHILS # 4.1 10^3/uL (1.5-8.5); NEUTROPHILS % 76.4 % (36.0-66.0); PLATELET COUNT, AUTOMATED 239 10^3/uL (150-450); RED BLOOD COUNT 3.52 10^6/uL (4.00-5.40); WHITE BLOOD COUNT 5.3 10^3/uL (4.0-10.0)
[2019-08-17 06:23] LABS: ALBUMIN 3.1 GM/DL (3.2-5.2); ALT/SGPT 446 U/L (12-78); BILIRUBIN,TOTAL 0.6 MG/DL (0.2-1.0); BLOOD UREA NITROGEN 7 MG/DL (7-18); CALCIUM LEVEL 8.4 MG/DL (8.8-10.2); CARBON DIOXIDE LEVEL 23 MEQ/L (21-32); CHLORIDE LEVEL 110 MEQ/L (98-107); CREATININE FOR GFR 0.51 MG/DL (0.55-1.30); GLOMERULAR FILTRATION RATE > 60.0 (>45); GLUCOSE, FASTING 125 MG/DL (70-100); SODIUM LEVEL 141 MEQ/L (136-145); TOTAL PROTEIN 6.1 GM/DL (6.4-8.2)
[2019-08-17] MEDS: ADVAIR HFA 45/21MCG INHALER INH SCH (06:32)
[2019-08-17] MEDS: PANTOPRAZOLE 40MG INJ (PROTONIX) (C9113) IV SCH (08:32)
[2019-08-17] MEDS: ANASTROZOLE 1 MG PO SCH (08:32)
[2019-08-17 10:00] VITALS: BP 136/66
[2019-08-17 14:00] VITALS: BP 124/91
--- NOTE | 2019-08-17 17:38 | DS.PDOC ---
Discharge Summary General Date of Admission Aug 15, 2019 at 05:07 Date of Discharge 08/17/2019 Primary Care Physician: Maico Trinh MD Attending Physician: Allan Luna MD Specialist/Consultants Involve: Mehul Perdomo Discharge Summary PROCEDURES PERFORMED DURING STAY: [None]. ADMITTING DIAGNOSES: 1. . DISCHARGE DIAGNOSES: 1. . COMPLICATIONS/CHIEF COMPLAINT: Pancreatitis. HISTORY OF PRESENT ILLNESS: . HOSPITAL COURSE: . DISCHARGE MEDICATIONS: Please see below. ALLERGIES: Please see below. PHYSICAL EXAMINATION ON DISCHARGE: VITAL SIGNS: Please see below. GENERAL: HEENT: NECK: CARDIOVASCULAR EXAMINATION: RESPIRATORY EXAMINATION: ABDOMINAL EXAMINATION: EXTREMITIES: SKIN: NEUROLOGICAL EXAMINATION: PSYCHIATRIC EXAMINATION: LABORATORY DATA: Please see below. IMAGING: PROGNOSIS: ACTIVITY: [As tolerated]. DIET: DISCHARGE PLAN: DISPOSITION: . DISCHARGE INSTRUCTIONS: 1. . ITEMS TO FOLLOWUP ON ON OUTPATIENT: 1. . DISCHARGE CONDITION: [Stable]. TIME SPENT ON DISCHARGE: Greater than minutes. Vital Signs/I&Os Vital Signs Date Time Temp Pulse Resp B/P (MAP) Pulse Ox O2 Delivery O2 Flow Rate FiO2 08/17/19 14:00 99.2 99 18 124/91 (102) 96 Room Air I&O- Last 24 Hours up to 6 AM 08/17/19 06:00 Intake Total 4260 ml Output Total 2850 ml Balance 1410 ml Laboratory Data Labs 24H Laboratory Tests 2 08/17/19 05:39: Immature Granulocyte % (Auto) 0.4, Neutrophils (%) (Auto) 76.4H, Lymphocytes (%) (Auto) 15.8L, Monocytes (%) (Auto) 7.2H, Eosinophils (%) (Auto) 0.0, Basophils (%) (Auto) 0.2, Neutrophils # (Auto) 4.1, Lymphocytes # (Auto) 0.8L, Monocytes # (Auto) 0.4, Eosinophils # (Auto) 0.0, Basophils # (Auto) 0.0, Nucleated Red Blood Cells % (auto) 0.0, Anion Gap 8, Glomerular Filtration Rate > 60.0, Calcium Level 8.4L, Total Bilirubin 0.6, Aspartate Amino Transf (AST/SGOT) 173H, Alanine Aminotransferase (ALT/SGPT) 446H, Alkaline Phosphatase 313H, Total Protein 6.1L, Albumin 3.1L, Albumin/Globulin Ratio 1.03 CBC/BMP Laboratory Tests 08/17/19 05:39 Discharge Medications Scheduled Anastrozole (Anastrozole) 1 Mg Tab, 1 MG PO DAILY Calcium Carbonate/Vitamin D3 (Calcium 600-Vit D3 200 Tablet) 1 Tab Tab, 1 TAB PO BID, (Reported) Cholecalciferol (Vitamin D3) (Vitamin D3) 10 Mcg Tablet, 10 MCG PO DAILY, (Reported) Esomeprazole Magnesium (Nexium) 40 Mg Cap, 40 MG PO DAILY, (Reported) FIRST THING IN MORNING Gluc Valencia/Chondro Valencia A/Vit C/Mn (Glucosamine Chondroitin Tab) 1 Each Tablet, 1 TAB PO BID, (Reported) Mirabegron (Myrbetriq) 50 Mg Tab.er.24h, 50 MG PO QPM, (Reported) TAKES AT 1630 Montelukast Sodium (Singulair) 10 Mg Tab, 10 MG PO QHS, (Reported) Multivitamins (Thera M Plus Tablet) 1 Each Tablet, 1 TAB PO DAILY, (Reported) Polyethylene Glycol 3350 (Miralax) 17 Gm Powd.pack, 8.5 GM PO QHS, (Reported) Salmeterol/Fluticasone (Advair 100-50 Diskus) 28 Puff/Inhaler Aerp, 1 PUFF INH BID, (Reported) Scheduled PRN Albuterol Sulfate (Ventolin Hfa) 108 Mcg/Act Aer, 2 PUFFS INH Q6H PRN for SHORTNESS OF BREATH, (Reported) Fluticasone Propionate (Flonase Allergy Relief) 9.9 Ml [place].susp, 1 SPRAY NA DAILY PRN for NASAL CONGESTION, (Reported) Guaifenesin (Mucinex) 600 Mg Tab.er.12h, 600 MG PO BID PRN for CONGESTION, (Reported) Allergies Coded Allergies: SMOKE (Verified Adverse Reaction, Intermediate, ASTHMA, 07/30/18) metronidazole (Verified Adverse Reaction, Intermediate, UPSET STOMACH, 08/15/19) ibuprofen (Verified Adverse Reaction, Unknown, N+V, 10/10/18) tetracycline (Verified Adverse Reaction, Unknown, N+V, 10/10/18) Allan Luna MD Aug 17, 2019 17:38
== END 2019-08-17 18:07 | disposition home or self-care (01) | DRG 440 ==
LOC: M ED 00:17 → M ED INP 05:07 → ENRESERVDT 05:20 → ENRESERVTM 05:20 → M MSPAV 08:44
PROVIDERS: ADMIT Internal Medicine; ATTEND Family Medicine
PROC: 0FC98ZZ Extirpation of Matter from Common Bile Duct, Via Natural or Artificial Opening Endoscopic (ICD-10-PCS; principal; 2019-08-16 16:00)
DX: K85.90 Acute pancreatitis without necrosis or infection, unspecified (principal); J45.909 Unspecified asthma, uncomplicated; K44.9 Diaphragmatic hernia without obstruction or gangrene; K80.50 Calculus of bile duct without cholangitis or cholecystitis without obstruction; N32.81 Overactive bladder; E55.9 Vitamin D deficiency, unspecified; I70.0 Atherosclerosis of aorta; M81.0 Age-related osteoporosis without current pathological fracture; Z85.3 Personal history of malignant neoplasm of breast; Z92.21 Personal history of antineoplastic chemotherapy; Z90.49 Acquired absence of other specified parts of digestive tract; Z79.899 Other long term (current) drug therapy; Z88.6 Allergy status to analgesic agent; Z88.1 Allergy status to other antibiotic agents; Z88.8 Allergy status to other drugs, medicaments and biological substances; Z91.048 Other nonmedicinal substance allergy status

== ENCOUNTER 2019-08-19 16:41 | Emergency (ER) | payer OTHER ==
[~2019-08-19] VITALS: Ht 167.6 cm; Wt 57.7 kg
[~2019-08-19 16:41] MED LIST changes: +FLON1SPR; +GLUCTAB6 PO; +MIRA1POW3 PO; +VITA1TAB26 PO; +VITMTA PO
[2019-08-19 18:06] LABS: BASO % 0.7 % (0.0-1.0); EOS # 0.2 10^3/uL (0.0-0.5); EOS % 3.1 % (0.0-3.0); HEMATOCRIT 38.7 % (36.0-47.0); HEMOGLOBIN 12.6 g/dl (12.0-15.5); LYMPH # 1.8 10^3/uL (1.5-5.0); LYMPH % 30.8 % (24.0-44.0); MEAN CORPUSCULAR HEMOGLOBIN 32.4 pg (27.0-33.0); MEAN CORPUSCULAR HGB CONC 32.6 g/dl (32.0-36.5); MEAN CORPUSCULAR VOLUME 99.5 fl (80.0-96.0); MONO # 0.6 10^3/uL (0.0-0.8); MONO % 10.8 % (0.0-5.0); NEUTROPHILS # 3.2 10^3/uL (1.5-8.5); NEUTROPHILS % 54.3 % (36.0-66.0); PLATELET COUNT, AUTOMATED 266 10^3/uL (150-450); RED BLOOD COUNT 3.89 10^6/uL (4.00-5.40); WHITE BLOOD COUNT 5.8 10^3/uL (4.0-10.0)
[2019-08-19 18:52] LABS: ALBUMIN 3.8 GM/DL (3.2-5.2); ALT/SGPT 286 U/L (12-78); BILIRUBIN,DIRECT 0.2 MG/DL (0.0-0.2); BILIRUBIN,TOTAL 0.4 MG/DL (0.2-1.0); BLOOD UREA NITROGEN 12 MG/DL (7-18); CALCIUM LEVEL 9.6 MG/DL (8.8-10.2); CARBON DIOXIDE LEVEL 33 MEQ/L (21-32); CHLORIDE LEVEL 103 MEQ/L (98-107); CREATININE FOR GFR 0.55 MG/DL (0.55-1.30); GLOMERULAR FILTRATION RATE > 60.0 (>45); GLUCOSE, FASTING 91 MG/DL (70-100); LIPASE 249 U/L (73-393); POTASSIUM SERUM 3.9 MEQ/L (3.5-5.1); SODIUM LEVEL 141 MEQ/L (136-145); TOTAL PROTEIN 7.1 GM/DL (6.4-8.2)
[2019-08-19] MEDS ORDERED: GI COCKTAIL 50ML BTL(HYOSCYAMINE/MAALOX/LIDOCAINE VISCOUS)(1:3:1) PO ONE (19:15)
--- NOTE | 2019-08-19 19:31 | REP ---
Clinical: abdominal pain. Technique: Upright view of the chest with supine and upright views of the abdomen and pelvis. Findings: Frontal upright view of the chest demonstrates no acute cardiopulmonary process or free air below the diaphragm to suspect pneumoperitoneum. Supine and upright views of the abdomen and pelvis demonstrate nonspecific bowel gas pattern without obstruction or perforation. Contrast noted within the left hemicolon. No organomegaly. Evidence of prior cholecystectomy. Impression: Nonspecific bowel gas pattern. Electronically Signed by René Cross MD 08/19/2019 07:23 P
--- NOTE | 2019-08-19 20:51 | REPVR ---
PROCEDURE INFORMATION: Exam: US Abdomen Limited, Right Upper Quadrant Exam date and time: 08/19/2019 8:08 PM Age: 64 years old Clinical indication: Abdominal pain; Colic; Prior surgery; Surgery date: 6+ months; Surgery type: Cholecystectomy; Patient HX: Patient had an ecrp in or 08/16/19, she stated they removed a stone and sludge; Additional info: RO cbd obstruction TECHNIQUE: Imaging protocol: Real-time ultrasound of the abdomen with image documentation. Examination was focused on the right upper quadrant. COMPARISON: US Abdomen 08/15/2019 3:18 AM FINDINGS: Liver: The liver demonstrates no focal defects. Gallbladder: Status post cholecystectomy. Common bile duct: The common bile duct measures 7-8 mm which is within normal limits considering prior cholecystectomy Pancreas: The pancreas is normal. Right kidney: The right kidney is normal with no hydronephrosis and measures 10.8 cm. Aorta: The abdominal aorta is of normal size. IMPRESSION: 1. Status post cholecystectomy. The CBD measures 7 8 mm which is physiologic. 2. Otherwise negative right upper quadrant sonogram. Electronically signed by: Andrei Musa On 08/19/2019 20:51:26 PM
[2019-08-19] MEDS ORDERED: ZOFR4TAB16 PO (21:12)
[2019-08-19 21:27] VITALS: BP 118/61
[2019-08-19] MEDS ORDERED: DICYCLOMINE 10 MG CAP PO ONE (21:30)
== END 2019-08-19 21:28 | disposition home or self-care (01) ==
LOC: M ED 16:41
DX: R10.10 Upper abdominal pain, unspecified (principal); Z87.19 Personal history of other diseases of the digestive system; J45.909 Unspecified asthma, uncomplicated; Z88.6 Allergy status to analgesic agent; Z88.1 Allergy status to other antibiotic agents; Z88.2 Allergy status to sulfonamides; Z91.09 Other allergy status, other than to drugs and biological substances; Z79.899 Other long term (current) drug therapy; Z79.51 Long term (current) use of inhaled steroids

== ENCOUNTER → 2019-11-05 | Outpatient (REF) | payer OTHER ==
[~2019-11-05] MED LIST changes: +ZOFR4TAB16 PO
[2019-11-05 17:42] LABS: ALBUMIN 3.8 GM/DL (3.2-5.2); ALT/SGPT 26 U/L (12-78); AMYLASE 52 U/L (25-115); BASO % 0.6 % (0.0-1.0); BILIRUBIN,TOTAL 0.5 MG/DL (0.2-1.0); BLOOD UREA NITROGEN 16 MG/DL (7-18); C REACTIVE PROTEIN QUANTITATIV < 0.30 MG/DL (0.00-0.30); CALCIUM LEVEL 9.3 MG/DL (8.8-10.2); CARBON DIOXIDE LEVEL 32 MEQ/L (21-32); CHLORIDE LEVEL 104 MEQ/L (98-107); CREATININE FOR GFR 0.66 MG/DL (0.55-1.30); EOS # 0.1 10^3/uL (0.0-0.5); EOS % 1.6 % (0.0-3.0); GLOMERULAR FILTRATION RATE > 60.0 (>45); GLUCOSE, FASTING 85 MG/DL (70-100); HEMATOCRIT 39.6 % (36.0-47.0); HEMOGLOBIN 13.3 g/dl (12.0-15.5); LIPASE 110 U/L (73-393); LYMPH # 1.7 10^3/uL (1.5-5.0); MEAN CORPUSCULAR HEMOGLOBIN 33.3 pg (27.0-33.0); MEAN CORPUSCULAR HGB CONC 33.6 g/dl (32.0-36.5); MONO # 0.6 10^3/uL (0.0-0.8); MONO % 9.4 % (0.0-5.0); NEUTROPHILS # 3.8 10^3/uL (1.5-8.5); NEUTROPHILS % 61.2 % (36.0-66.0); PLATELET COUNT, AUTOMATED 252 10^3/uL (150-450); POTASSIUM SERUM 4.2 MEQ/L (3.5-5.1); SODIUM LEVEL 140 MEQ/L (136-145); TOTAL PROTEIN 7.2 GM/DL (6.4-8.2); WHITE BLOOD COUNT 6.3 10^3/uL (4.0-10.0)
[2019-11-05 18:45] LABS: ERYTHROCYTE SEDIMENTATION RATE 8 mm/hr (0-30)
== END ==
LOC: M SFHCADAM 11:53
PROVIDERS: ATTEND Physician Assistant
DX: M54.6 Pain in thoracic spine (principal); Z87.19 Personal history of other diseases of the digestive system

== ENCOUNTER → 2019-11-05 | Outpatient (CLI) | payer OTHER ==
--- NOTE | 2019-11-05 14:37 | REP ---
THORACIC SPINE, AP AND LATERAL: Three AP and lateral views of the thoracic spine are performed. There is no compression fracture or malalignment with normal thoracic kyphosis. There is mild diffuse spurring. There is slight disc space narrowing and subchondral sclerosis at a few mid thoracic disc levels. The posterior elements are intact. IMPRESSION: Mild degenerative changes without evidence of compression fracture. Electronically Signed by Aly Chowdary MD 11/05/2019 03:23 P
== END ==
LOC: M ADAMS 12:03
PROVIDERS: ATTEND Physician Assistant
DX: M51.34 Other intervertebral disc degeneration, thoracic region (principal)

== ENCOUNTER → 2019-12-03 | Outpatient (CLI) | payer OTHER ==
--- NOTE | 2019-12-03 09:49 | REPMRS ---
Patient History The patient states she had a clinical breast exam in September 2019. Family history of colorectal cancer in maternal aunt. Malignant radio exam breast specimen, January 13, 2014. Benign ultrasound-guided FNA biopsy of the left breast, September 03, 2007. 2 radiation therapies of the left breast. Digital Woman Screen Mammo: December 03, 2019 - Exam #: [id number] Bilateral CC and MLO view(s) were taken. Technologist: Amy Gutierrez, Technologist Prior study comparison: November 29, 2018, bilateral digital mammo screening bilat, performed at [facility]. November 27, 2017, bilateral digital mammo screening bilat, performed at [facility]. November 23, 2016, bilateral digital mammo screening bilat, performed at [facility]. FINDINGS: There are scattered fibroglandular densities. The Volpara volumetric breast density category is:B. There are stable post-treatment changes on the left. A needle biopsy marker clip is again noted on the left. There has been no change in the appearance of the mammogram from the prior studies. There is a mild amount of scattered fibroglandular density which is fairly symmetric. There is no interval development of dominant mass, architectural distortion, or grouped microcalcification suggestive of malignancy. 3-D tomosynthesis shows no additional findings. Assessment: BI-RADS/ACR category 2 mammogram. Benign Findings. Recommendation Routine screening mammogram of both breasts in 1 year (for women over age 40). This mammogram was interpreted with the aid of an FDA-approved computer-aided dectection system. Electronically Signed By: Albino Ernst MD 12/03/19 [id number]
== END ==
LOC: M WHC 09:12
PROVIDERS: ATTEND Internal Medicine Hematology
DX: Z12.31 Encounter for screening mammogram for malignant neoplasm of breast (principal)

== ENCOUNTER → 2019-12-12 | Outpatient (REF) | payer OTHER ==
[2019-12-12 13:10] LABS: APPEARANCE, URINE CLEAR (CLEAR); BACTERIA, URINE AUTO NEGATIVE (NEGATIVE); BILIRUBIN, URINE AUTO NEGATIVE (NEGATIVE); BLOOD, URINE BLOOD NEGATIVE (NEGATIVE); COLOR, URINE STRAW (YELLOW); GLUCOSE, URINE (UA) AUTO NEGATIVE (NEGATIVE); KETONE, URINE AUTO NEGATIVE (NEGATIVE); LEUKOCYTE ESTERASE, URINE AUTO NEGATIVE (NEGATIVE); NITRITE, URINE AUTO NEGATIVE (NEGATIVE); PROTEIN, URINE AUTO NEGATIVE (NEGATIVE); RBC, URINE AUTO 0 /HPF (0-3); SPECIFIC GRAVITY URINE AUTO 1.003 (1.002-1.035); SQUAMOUS EPITHELIAL CELL UR AU 0 /HPF (0-6); UROBILINOGEN, URINE AUTO 0.2 mg/dL (0.0-2.0); WBC, URINE AUTO 0 /HPF (0-3)
== END ==
LOC: M SFHCADAM 12:29
PROVIDERS: ATTEND Physician Assistant
DX: R10.2 Pelvic and perineal pain (principal)

== ENCOUNTER → 2020-01-07 | Outpatient (CLI) | payer OTHER ==
--- NOTE | 2020-01-07 17:00 | REP ---
Clinical: Suprapubic pain. Technique: Transabdominal pelvic ultrasound followed by transvaginal examination for better evaluation of the endometrium and adnexa. Findings: Bladder measures 9.6 x 6.2% 0.2 cm. Retroverted uterus measures 4.2 x 1.7 x 2.7 cm. Endometrial complex measures 2.8 mm thickness. No discrete uterine or endometrial abnormalities appreciated. Ovaries are not visualized. No pelvic fluid or adnexal mass lesion. Impression: Relatively normal retroverted uterus. Ovaries not visualized. No pelvic fluid. Electronically Signed by René Cross MD 01/07/2020 04:52 P
== END ==
LOC: M RAD 15:33
PROVIDERS: ATTEND Physician Assistant
DX: R10.2 Pelvic and perineal pain (principal)

== ENCOUNTER → 2020-03-13 | Outpatient (REF) | payer OTHER | LOC: M LAB REF 15:21 | PROVIDERS: ATTEND Physician Assistant | DX: L57.0 Actinic keratosis (principal) ==

== ENCOUNTER → 2020-03-19 | Outpatient (REF) | payer OTHER ==
[2020-03-19 17:02] LABS: HEMATOCRIT 39.5 % (36.0-47.0); HEMOGLOBIN 13.2 g/dl (12.0-15.5); MEAN CORPUSCULAR HEMOGLOBIN 33.3 pg (27.0-33.0); MEAN CORPUSCULAR HGB CONC 33.4 g/dl (32.0-36.5); MEAN CORPUSCULAR VOLUME 99.7 fl (80.0-96.0); PLATELET COUNT, AUTOMATED 237 10^3/uL (150-450); RED BLOOD COUNT 3.96 10^6/uL (4.00-5.40); WHITE BLOOD COUNT 6.3 10^3/uL (4.0-10.0)
[2020-03-19 17:06] LABS: ALBUMIN 3.7 GM/DL (3.2-5.2); ALT/SGPT 31 U/L (12-78); BILIRUBIN,TOTAL 0.6 MG/DL (0.2-1.0); BLOOD UREA NITROGEN 11 MG/DL (7-18); CALCIUM LEVEL 9.4 MG/DL (8.8-10.2); CARBON DIOXIDE LEVEL 31 MEQ/L (21-32); CHLORIDE LEVEL 105 MEQ/L (98-107); GLOMERULAR FILTRATION RATE > 60.0 (>45); GLUCOSE, FASTING 121 MG/DL (70-100); LIPASE 102 U/L (73-393); SODIUM LEVEL 139 MEQ/L (136-145); TOTAL PROTEIN 7.1 GM/DL (6.4-8.2)
== END ==
LOC: M LABDRWAD 14:20
PROVIDERS: ATTEND Family Medicine
DX: R10.13 Epigastric pain (principal)

== ENCOUNTER → 2020-03-31 | Outpatient (CLI) | payer OTHER ==
--- NOTE | 2020-04-09 13:06 | REP ---
NONCONTRAST CT CLINICAL: Epigastric pain. TECHNIQUE: Axial noncontrast images from the lung bases to the pubic symphysis with coronal and sagittal reformations. COMPARISON: 08/15/2019. FINDINGS: The lung bases are clear. Visualized heart and pericardium are normal. Liver, spleen, pancreas, bilateral adrenal glands, and kidneys are normal for noncontrast evaluation. Patient is status post cholecystectomy with minimal chronic pneumobilia noted. The previously noted intrahepatic and extrahepatic biliary ductal dilatation has considerably approved and appears relatively normal. The enteric system is without obstruction or acute inflammatory process. Diffuse colonic diverticulosis noted without acute diverticulitis. Pelvis demonstrates a normal bladder and age appropriate uterus/adnexa. Small amount of pelvic free fluid is nonspecific. No significant ascites. No free air. No adenopathy. Abdominal aorta without aneurysm. Musculoskeletal structures demonstrate age-related changes without acute osseous abnormality. IMPRESSION: * No acute abdominopelvic pathology appreciated. * Colonic diverticulosis without acute diverticulitis. * Previously noted biliary ductal dilatation has essentially completely resolved. MTDD
== END ==
LOC: M RAD 11:01
PROVIDERS: ATTEND Family Medicine
DX: R10.13 Epigastric pain (principal)

== ENCOUNTER → 2020-04-21 | Outpatient (CLI) | payer OTHER ==
--- NOTE | 2020-04-30 09:50 | DEXA ---
AP SPINE L1 - L4 1.005 -1.5 0.0 LT FEMUR TOTAL 0.840 -1.3 -0.2 LT NECK 0.927 -0.8 0.6 RT FEMUR TOTAL 0.865 -1.1 0.0 RT NECK 1.057 0.1 1.6 TOTAL BODY TOTAL OTHER COMMENTS: There is low bone density of the spine and hips. The density of the spine is decreased 4.6% since the initial exam on 07/31/2006. The decreased 3.8% since the most recent exam on 04/13/2018. The density of the left hip has decreased 11.9% since the initial exam on 07/31/2006. The density of the left hip has decreased 6.3% since the most recent exam on 04/13/2018. The density of the right hip is 0% since the initial exam on 07/31/2006. The density of the right hip has increased 1.6% since the most recent exam on 04/13/2018. FOLLOW-UP: Recommendation for the next bone density exam: 2 years. TABATHA
== END ==
LOC: M WHC 12:49
PROVIDERS: ATTEND Internal Medicine Hematology
DX: Z13.820 Encounter for screening for osteoporosis (principal); M85.88 Other specified disorders of bone density and structure, other site; M85.851 Other specified disorders of bone density and structure, right thigh; M85.852 Other specified disorders of bone density and structure, left thigh

== ENCOUNTER → 2020-06-13 | Outpatient (CLI) | payer OTHER | LOC: M LABSMTC 12:08 | PROVIDERS: ATTEND Orthopaedic Surgery | DX: Z01.812 Encounter for preprocedural laboratory examination (principal); Z20.828 Contact with and (suspected) exposure to other viral communicable diseases ==

== ENCOUNTER → 2020-12-03 | Outpatient (CLI) | payer OTHER ==
--- NOTE | 2020-12-03 12:36 | REPMRS ---
Patient History The patient states she had a clinical breast exam in November 2020. Patient is postmenopausal, has history of breast cancer at age 58, and is nulliparous. Family history of colorectal cancer in maternal aunt. Malignant radio exam breast specimen, January 13, 2014. Benign ultrasound-guided FNA biopsy of the left breast, September 03, 2007. 2 radiation therapies of the left breast. Taking tamoxifen for 6 years 10 months. No breast complaints today Patient signed the MRS sheet 1st covid vaccine 09/09/20-right arm-Pfizer 2nd covid vaccine 09/30/20-right arm Best views possible on both MLO's could not get patient to relax Priors on PACS Patient Identification Verified Digital Woman Screen Mammo: December 03, 2020 - Exam #: [id number] Bilateral CC and MLO view(s) were taken. Technologist: Kayla Chandraologist Prior study comparison: December 03, 2019, bilateral digital woman screen mammo performed at [facility] and [facility]. November 29, 2018, bilateral digital mammo screening bilat, performed at [facility]. November 27, 2017, bilateral digital mammo screening bilat, performed at [facility]. FINDINGS: There are scattered fibroglandular densities. The Volpara volumetric breast density category is:B. There are stable post treatment changes in the left breast as on prior studies. There has been no change in the appearance of the mammogram from the prior studies. There is a mild amount of scattered fibroglandular density which is fairly symmetric. There is no interval development of dominant mass, architectural distortion, or grouped microcalcification suggestive of malignancy. 3-D tomosynthesis shows no additional findings. Assessment: BI-RADS/ACR category 2 mammogram. Benign Findings. Recommendation Routine screening mammogram of both breasts in 1 year (for women over age 40). This mammogram was interpreted with the aid of an FDA-approved computer-aided dectection system. Electronically Signed By: Albino Ernst MD 12/03/20 [id number]
== END ==
LOC: M WHC 11:09
PROVIDERS: ATTEND Internal Medicine Hematology
DX: Z12.31 Encounter for screening mammogram for malignant neoplasm of breast (principal)

== ENCOUNTER → 2020-12-03 | Outpatient (REF) | payer OTHER | LOC: M SFHCWAGY 13:03 | PROVIDERS: ATTEND Nurse Practitioner Women's Health | DX: Z12.4 Encounter for screening for malignant neoplasm of cervix (principal) | CPT/HCPCS: 87624; G0123 ==

== ENCOUNTER → 2021-03-30 | Outpatient (REF) | payer MEDICARE, OTHER ==
[~2021-03-30] MED LIST changes: +TIZA4TAB4 PO
[2021-03-30 12:25] LABS: HEMATOCRIT 39.5 % (36.0-47.0); MEAN CORPUSCULAR HEMOGLOBIN 32.7 pg (27.0-33.0); MEAN CORPUSCULAR HGB CONC 32.9 g/dl (32.0-36.5); MEAN CORPUSCULAR VOLUME 99.5 fl (80.0-96.0); PLATELET COUNT, AUTOMATED 285 10^3/uL (150-450); RED BLOOD COUNT 3.97 10^6/uL (4.00-5.40); WHITE BLOOD COUNT 5.8 10^3/uL (4.0-10.0)
[2021-03-30 13:07] LABS: ALBUMIN 3.7 GM/DL (3.2-5.2); ALT/SGPT 27 U/L (12-78); BILIRUBIN,TOTAL 0.6 MG/DL (0.2-1.0); BLOOD UREA NITROGEN 19 MG/DL (7-18); CALCIUM LEVEL 9.4 MG/DL (8.8-10.2); CARBON DIOXIDE LEVEL 31 MEQ/L (21-32); CHLORIDE LEVEL 104 MEQ/L (98-107); CHOLESTEROL LEVEL 210 MG/DL (<200); CREATININE FOR GFR 0.57 MG/DL (0.55-1.30); GLOMERULAR FILTRATION RATE > 60.0 (>45); GLUCOSE, FASTING 81 MG/DL (70-100); HDL CHOLESTEROL 70 MG/DL (>40); LDL CHOLESTEROL 131 MG/DL (<100); NON-HDL-C 140 MG/DL; POTASSIUM SERUM 4.5 MEQ/L (3.5-5.1); SODIUM LEVEL 140 MEQ/L (136-145); THYROID STIMULATING HORMONE 0.718 uIU/ML (0.358-3.740); TOTAL PROTEIN 7.2 GM/DL (6.4-8.2); TRIGLYCERIDES LEVEL 46 MG/DL (<150)
== END ==
LOC: M SFHCADAM 08:46
PROVIDERS: ATTEND Physician Assistant
DX: C50.919 Malignant neoplasm of unspecified site of unspecified female breast (principal); E78.5 Hyperlipidemia, unspecified

== ENCOUNTER → 2021-04-20 | Outpatient (REF) | payer MEDICARE, OTHER ==
[2021-04-20 14:00] LABS: BASO # 0.1 10^3/uL (0.0-0.2); BASO % 1.1 % (0.0-1.0); EOS # 0.1 10^3/uL (0.0-0.5); EOS % 2.5 % (0.0-3.0); HEMATOCRIT 40.2 % (36.0-47.0); HEMOGLOBIN 13.3 g/dl (12.0-15.5); LYMPH # 1.8 10^3/uL (1.5-5.0); LYMPH % 32.1 % (24.0-44.0); MEAN CORPUSCULAR HEMOGLOBIN 32.8 pg (27.0-33.0); MEAN CORPUSCULAR HGB CONC 33.1 g/dl (32.0-36.5); MONO # 0.5 10^3/uL (0.0-0.8); MONO % 9.3 % (2.0-8.0); NEUTROPHILS # 3.1 10^3/uL (1.5-8.5); NEUTROPHILS % 54.8 % (36.0-66.0); PLATELET COUNT, AUTOMATED 257 10^3/uL (150-450); RED BLOOD COUNT 4.06 10^6/uL (4.00-5.40); WHITE BLOOD COUNT 5.6 10^3/uL (4.0-10.0)
[2021-04-20 14:35] LABS: ALBUMIN 3.9 GM/DL (3.2-5.2); ALT/SGPT 27 U/L (12-78); BILIRUBIN,TOTAL 0.9 MG/DL (0.2-1.0); BLOOD UREA NITROGEN 17 MG/DL (7-18); CALCIUM LEVEL 9.9 MG/DL (8.8-10.2); CARBON DIOXIDE LEVEL 30 MEQ/L (21-32); CHLORIDE LEVEL 104 MEQ/L (98-107); CREATININE FOR GFR 0.69 MG/DL (0.55-1.30); GLOMERULAR FILTRATION RATE > 60.0 (>45); GLUCOSE, FASTING 90 MG/DL (70-100); POTASSIUM SERUM 4.2 MEQ/L (3.5-5.1); SODIUM LEVEL 140 MEQ/L (136-145); TOTAL PROTEIN 7.4 GM/DL (6.4-8.2)
== END ==
LOC: M SFHCADAM 09:49
PROVIDERS: ATTEND Physician Assistant
DX: R10.13 Epigastric pain (principal)

== ENCOUNTER → 2021-04-22 | Outpatient (REF) | payer MEDICARE, OTHER ==
[2021-04-22 16:59] LABS: AMYLASE 47 U/L (25-115); LIPASE 91 U/L (73-393)
== END ==
LOC: M SFHCADAM 14:46
PROVIDERS: ATTEND Physician Assistant
DX: K21.9 Gastro-esophageal reflux disease without esophagitis (principal); R10.13 Epigastric pain
CPT/HCPCS: 82150; 83690; G0463

== ENCOUNTER → 2021-04-23 | Outpatient (CLI) | payer MEDICARE, OTHER ==
[~2021-04-23] MED LIST changes: +GASTROGRAFIN SOLUTION 30ML (Q9963) As Ordered ONE; +ISOVUE-370 76% 100ML VIAL As Ordered ONE
--- NOTE | 2021-04-23 18:05 | REPVR ---
PROCEDURE INFORMATION: Exam: CT Abdomen And Pelvis Without And With Contrast Exam date and time: 04/23/2021 5:19 PM Age: 66 years old Clinical indication: Abdominal pain; Epigastric; Additional info: Gerd, epigastric pain TECHNIQUE: Imaging protocol: Computed tomography of the abdomen and pelvis without and with contrast. Radiation optimization: All CT scans at this facility use at least one of these dose optimization techniques: automated exposure control; mA and/or kV adjustment per patient size (includes targeted exams where dose is matched to clinical indication); or iterative reconstruction. Contrast material: ISOVUE 370; Contrast volume: 100 ml; Contrast route: INTRAVENOUS (IV); COMPARISON: CT ABD PELVIS W/O CONTRAST 03/31/2020 11:21 AM FINDINGS: Tubes, catheters and devices: Bilateral tubal occlusion devices are present. Lungs: No suspicious mass or airspace process in the visualized lung bases. Liver: Liver appears normal with no focal abnormality. Gallbladder and bile ducts: Gallbladder is surgically absent. Prominent central bile ducts, likely postcholecystectomy capacitance effect. Pancreas: Pancreas appears normal. No focal mass or peripancreatic inflammation. Spleen: Spleen appears homogeneous without focal mass. Adrenal glands: Adrenal glands are normal in appearance. Kidneys and ureters: Kidneys appear normal, with no stone, solid mass or hydronephrosis. Stomach and bowel: No evidence of small bowel obstruction. Terminal ileum has normal appearance. Diverticular changes are present within the colon without inflammation. Sigmoid colon anastomosis shows no obstruction or dehiscence. Appendix: Appendix is not seen. No RLQ inflammation to suggest appendicitis. Intraperitoneal space: No pneumoperitoneum. Vasculature: No aortic aneurysm. Main portal and splenic veins enhance normally. Lymph nodes: No enlarged lymph nodes. Urinary bladder: Urinary bladder appears normal. Reproductive: Female reproductive organs appear unremarkable. Bones/joints: Bony structures are normal except for lumbar spine degenerative disc changes. Soft tissues: Unremarkable. Other findings: No concerning asymmetry or abnormality at the GE junction. IMPRESSION: 1. No explanation for acute epigastric pain. 2. Intra and extrahepatic bile duct dilatation, unchanged and likely asymptomatic, and related to the post cholecystectomy affect. 3. No evidence of metastatic disease or bowel obstruction Electronically signed by: Chin Hanks On 04/23/2021 18:05:12 PM
== END ==
LOC: M RAD 15:10
PROVIDERS: ATTEND Physician Assistant
DX: K21.9 Gastro-esophageal reflux disease without esophagitis (principal)
CPT/HCPCS: 74178; Q9963; Q9967

== ENCOUNTER → 2021-06-11 | Outpatient (REF) | payer MEDICARE, OTHER ==
[~2021-06-11] MED LIST changes: -GASTROGRAFIN SOLUTION 30ML (Q9963) As Ordered ONE; -ISOVUE-370 76% 100ML VIAL As Ordered ONE
[2021-06-11 14:06] LABS: APPEARANCE, URINE CLEAR (CLEAR); BACTERIA, URINE AUTO NEGATIVE (NEGATIVE); BILIRUBIN, URINE AUTO NEGATIVE (NEGATIVE); BLOOD, URINE BLOOD 1+ (NEGATIVE); COLOR, URINE STRAW (YELLOW); GLUCOSE, URINE (UA) AUTO NEGATIVE (NEGATIVE); KETONE, URINE AUTO NEGATIVE (NEGATIVE); LEUKOCYTE ESTERASE, URINE AUTO NEGATIVE (NEGATIVE); NITRITE, URINE AUTO NEGATIVE (NEGATIVE); PROTEIN, URINE AUTO NEGATIVE (NEGATIVE); RBC, URINE AUTO 0 /HPF (0-3); SPECIFIC GRAVITY URINE AUTO 1.008 (1.002-1.035); SQUAMOUS EPITHELIAL CELL UR AU 0 /HPF (0-6); UROBILINOGEN, URINE AUTO 0.2 mg/dL (0.0-2.0); WBC, URINE AUTO 0 /HPF (0-3)
== END ==
LOC: M SMT 13:14
PROVIDERS: ATTEND Nurse Practitioner Women's Health
DX: R30.0 Dysuria (principal)

== ENCOUNTER → 2021-08-05 | Outpatient (REF) | payer MEDICARE, OTHER ==
[~2021-08-05] MED LIST changes: +TIZA10TA PO; -TIZA4TAB4 PO
[2021-08-05 12:39] LABS: BASO # 0.1 10^3/uL (0.0-0.2); BASO % 1.2 % (0.0-1.0); EOS # 0.1 10^3/uL (0.0-0.5); HEMATOCRIT 39.9 % (36.0-47.0); HEMOGLOBIN 13.3 g/dl (12.0-15.5); LYMPH # 1.7 10^3/uL (1.5-5.0); LYMPH % 33.4 % (24.0-44.0); MEAN CORPUSCULAR HEMOGLOBIN 32.4 pg (27.0-33.0); MEAN CORPUSCULAR HGB CONC 33.3 g/dl (32.0-36.5); MEAN CORPUSCULAR VOLUME 97.3 fl (80.0-96.0); MONO # 0.6 10^3/uL (0.0-0.8); MONO % 11.1 % (2.0-8.0); NEUTROPHILS # 2.7 10^3/uL (1.5-8.5); NEUTROPHILS % 51.9 % (36.0-66.0); PLATELET COUNT, AUTOMATED 268 10^3/uL (150-450); WHITE BLOOD COUNT 5.1 10^3/uL (4.0-10.0)
[2021-08-05 14:13] LABS: ALBUMIN 4.1 GM/DL (3.2-5.2); ALT/SGPT 24 U/L (12-78); BILIRUBIN,DIRECT 0.2 MG/DL (0.0-0.2); BILIRUBIN,TOTAL 0.7 MG/DL (0.2-1.0); BLOOD UREA NITROGEN 19 MG/DL (7-18); CREATININE FOR GFR 0.77 MG/DL (0.55-1.30); GLOMERULAR FILTRATION RATE > 60.0 (>45); IRON (FE) 125 UG/DL (50-170); PERCENT SATURATION 35.8 % (13.2-45.0); TOTAL IRON BINDING CAPACITY 349 UG/DL (250-450); TOTAL PROTEIN 7.3 GM/DL (6.4-8.2)
== END ==
LOC: M LABDRWAD 12:21
PROVIDERS: ATTEND Internal Medicine Gastroenterology
DX: R10.13 Epigastric pain (principal); R93.5 Abnormal findings on diagnostic imaging of other abdominal regions, including retroperitoneum; D50.9 Iron deficiency anemia, unspecified

== ENCOUNTER → 2021-10-18 | Outpatient (REF) | payer MEDICARE, OTHER ==
[2021-10-18 17:45] LABS: APPEARANCE, URINE CLEAR (CLEAR); BACTERIA, URINE AUTO NEGATIVE (NEGATIVE); BILIRUBIN, URINE AUTO NEGATIVE (NEGATIVE); BLOOD, URINE BLOOD NEGATIVE (NEGATIVE); COLOR, URINE YELLOW (YELLOW); GLUCOSE, URINE (UA) AUTO NEGATIVE (NEGATIVE); KETONE, URINE AUTO NEGATIVE (NEGATIVE); LEUKOCYTE ESTERASE, URINE AUTO NEGATIVE (NEGATIVE); NITRITE, URINE AUTO NEGATIVE (NEGATIVE); PROTEIN, URINE AUTO NEGATIVE (NEGATIVE); RBC, URINE AUTO 0 /HPF (0-3); SPECIFIC GRAVITY URINE AUTO 1.004 (1.002-1.035); SQUAMOUS EPITHELIAL CELL UR AU 0 /HPF (0-6); UROBILINOGEN, URINE AUTO 0.2 mg/dL (0.0-2.0); WBC, URINE AUTO 0 /HPF (0-3)
== END ==
LOC: M SMT 16:34
PROVIDERS: ATTEND Nurse Practitioner Women's Health
DX: R30.0 Dysuria (principal)

== ENCOUNTER → 2021-10-22 | Outpatient (REF) | payer MEDICARE, OTHER ==
[2021-10-22 13:44] LABS: APPEARANCE, URINE CLEAR (CLEAR); BACTERIA, URINE AUTO NEGATIVE (NEGATIVE); BILIRUBIN, URINE AUTO NEGATIVE (NEGATIVE); BLOOD, URINE BLOOD NEGATIVE (NEGATIVE); COLOR, URINE STRAW (YELLOW); GLUCOSE, URINE (UA) AUTO NEGATIVE (NEGATIVE); KETONE, URINE AUTO NEGATIVE (NEGATIVE); LEUKOCYTE ESTERASE, URINE AUTO NEGATIVE (NEGATIVE); NITRITE, URINE AUTO NEGATIVE (NEGATIVE); PROTEIN, URINE AUTO NEGATIVE (NEGATIVE); RBC, URINE AUTO 0 /HPF (0-3); SPECIFIC GRAVITY URINE AUTO 1.004 (1.002-1.035); SQUAMOUS EPITHELIAL CELL UR AU 0 /HPF (0-6); UROBILINOGEN, URINE AUTO 0.2 mg/dL (0.0-2.0); WBC, URINE AUTO 0 /HPF (0-3)
== END ==
LOC: M SMT 13:15
PROVIDERS: ATTEND Urology
DX: R39.198 Other difficulties with micturition (principal)

== ENCOUNTER → 2021-10-29 | Outpatient (REF) | payer MEDICARE, OTHER ==
[2021-10-29 13:56] LABS: APPEARANCE, URINE CLEAR (CLEAR); BACTERIA, URINE AUTO NEGATIVE (NEGATIVE); BILIRUBIN, URINE AUTO NEGATIVE (NEGATIVE); BLOOD, URINE BLOOD NEGATIVE (NEGATIVE); COLOR, URINE STRAW (YELLOW); GLUCOSE, URINE (UA) AUTO NEGATIVE (NEGATIVE); KETONE, URINE AUTO NEGATIVE (NEGATIVE); LEUKOCYTE ESTERASE, URINE AUTO NEGATIVE (NEGATIVE); MUCUS, URINE SMALL (NEGATIVE); NITRITE, URINE AUTO NEGATIVE (NEGATIVE); PROTEIN, URINE AUTO NEGATIVE (NEGATIVE); RBC, URINE AUTO 0 /HPF (0-3); SPECIFIC GRAVITY URINE AUTO 1.006 (1.002-1.035); SQUAMOUS EPITHELIAL CELL UR AU 0 /HPF (0-6); UROBILINOGEN, URINE AUTO 0.2 mg/dL (0.0-2.0); WBC, URINE AUTO 1 /HPF (0-3)
== END ==
LOC: M SMT 13:17
PROVIDERS: ATTEND Nurse Practitioner Women's Health
DX: R39.89 Other symptoms and signs involving the genitourinary system (principal)

== ENCOUNTER → 2021-12-09 | Outpatient (CLI) | payer MEDICARE, OTHER ==
[~2021-12-09] MED LIST changes: +CVS1CAP2 PO; +FAMO20TA PO; -GLUCTAB6 PO; +GLUCTAB7 PO; +PHEN-501 PO
== END ==
LOC: M WHC 13:06
PROVIDERS: ATTEND Specialist
DX: Z12.31 Encounter for screening mammogram for malignant neoplasm of breast (principal); Z85.3 Personal history of malignant neoplasm of breast

== ENCOUNTER → 2021-12-20 | Outpatient (CLI) | payer MEDICARE, OTHER | LOC: M LABSMTC 09:37 | PROVIDERS: ATTEND Anesthesiology | DX: Z01.812 Encounter for preprocedural laboratory examination (principal) ==

== ENCOUNTER 2021-12-24 12:04 | Day surgery (SDC) | payer MEDICARE, OTHER ==
[~2021-12-24] VITALS: Ht 167.6 cm; Wt 55.5 kg
[2021-12-24] MEDS ORDERED: LR 1,000 ML IV SCH ×2 (12:30→16:55)
[2021-12-24] MEDS ORDERED: CLAR5TAB11 PO (12:31)
[2021-12-24] MEDS ORDERED: MIDAZOLAM INJ 2MG/2ML VIAL (J2250 PER 1MG) As Ordered ONE (14:27)
[2021-12-24] MEDS ORDERED: ROCURONIUM BROMIDE 50 MG/5 ML VIAL As Ordered ONE (14:27)
[2021-12-24] MEDS ORDERED: fentaNYL 100 MCG/2 ML INJECTION As Ordered ONE (14:27)
[2021-12-24] MEDS ORDERED: dexameTHASONE 4 MG/ML 1ML VIAL (J1100 PER 1MG) As Ordered ONE (14:28)
[2021-12-24] MEDS ORDERED: LIDOCAINE 2% 100MG/5ML SDV (FOR ANES.) As Ordered ONE (14:28)
[2021-12-24] MEDS ORDERED: ONDANSETRON 4MG/2ML VIAL As Ordered ONE (14:28)
[2021-12-24] MEDS ORDERED: propofoL 200 MG/20 ML VIAL As Ordered ONE (14:28)
[2021-12-24] MEDS ORDERED: ISOVUE-300 61% 50ML VIAL As Ordered ONE (14:54)
[2021-12-24] MEDS ORDERED: PHENYLephrine 500MCG 5ML (100MCG/ML) SYRINGE As Ordered ONE (15:46)
[2021-12-24] MEDS ORDERED: SUGAMMADEX SODIUM 500 MG/5 ML VIAL (BRIDION) As Ordered ONE (15:50)
[2021-12-24] MEDS ORDERED: fentaNYL 100 MCG/2 ML INJECTION IV PRN (16:55)
[2021-12-24] MEDS ORDERED: ONDANSETRON 4MG/2ML VIAL IV PRN (16:55)
[2021-12-24] MEDS ORDERED: oxyCODONE 5MG TAB PO PRN (16:55)
[2021-12-24 19:27] VITALS: BP 155/78
[2021-12-27] MEDS ORDERED: ANAS1TAB2 PO (08:45)
== END 2021-12-24 19:27 | disposition home or self-care (01) ==
LOC: M SDC 12:04
PROVIDERS: ATTEND Internal Medicine Gastroenterology
DX: R93.5 Abnormal findings on diagnostic imaging of other abdominal regions, including retroperitoneum (principal); R93.2 Abnormal findings on diagnostic imaging of liver and biliary tract; K83.1 Obstruction of bile duct; K57.92 Diverticulitis of intestine, part unspecified, without perforation or abscess without bleeding; K83.8 Other specified diseases of biliary tract; Z92.3 Personal history of irradiation; Z85.3 Personal history of malignant neoplasm of breast; M81.0 Age-related osteoporosis without current pathological fracture; K21.9 Gastro-esophageal reflux disease without esophagitis; K44.9 Diaphragmatic hernia without obstruction or gangrene; Z79.51 Long term (current) use of inhaled steroids; Z79.899 Other long term (current) drug therapy; J45.909 Unspecified asthma, uncomplicated
CPT/HCPCS: 43262; 74330; 88104; J1100; J2250; J2370; J2405; J3010; Q9967

== ENCOUNTER → 2022-03-18 | Outpatient (CLI) | payer MEDICARE, OTHER ==
[~2022-03-18] MED LIST changes: +ALEN70TA87 PO; +CLAR5TAB11 PO; -FOSA70TA PO
[2022-03-18 13:25] LABS: ALBUMIN 3.9 GM/DL (3.2-5.2); BILIRUBIN,DIRECT 0.2 MG/DL (0.0-0.2); BILIRUBIN,TOTAL 0.6 MG/DL (0.2-1.0); TOTAL PROTEIN 7.2 GM/DL (6.4-8.2)
== END ==
LOC: M ADAMS 08:04
PROVIDERS: ATTEND Internal Medicine Gastroenterology
DX: R10.13 Epigastric pain (principal)

== ENCOUNTER → 2022-04-27 | Outpatient (CLI) | payer MEDICARE, OTHER ==
[~2022-04-27] MED LIST changes: +URSO300C3
== END ==
LOC: M WHC 10:04
PROVIDERS: ATTEND Nurse Practitioner
DX: M81.0 Age-related osteoporosis without current pathological fracture (principal)

== ENCOUNTER → 2022-05-02 | Outpatient (REF) | payer MEDICARE, OTHER ==
[2022-05-02 13:53] LABS: APPEARANCE, URINE MANUAL CLEAR (CLEAR); COLOR, URINE MANUAL YELLOW (YELLOW)
[2022-05-02 13:54] LABS: BILIRUBIN, URINE MANUAL NEGATIVE (NEGATIVE); BLOOD URINE MANUAL NEGATIVE (NEGATIVE); GLUCOSE, URINE (UA) MANUAL NEGATIVE (NEGATIVE); KETONE, URINE MANUAL NEGATIVE (NEGATIVE); LEUKOCYTE ESTERASE, URINE MAN NEGATIVE (NEGATIVE); NITRITE, URINE MANUAL NEGATIVE (NEGATIVE); PROTEIN, URINE MANUAL NEGATIVE (NEGATIVE); UROBILINOGEN, URINE MANUAL NORMAL (NORMAL)
== END ==
LOC: M SMT 12:51
PROVIDERS: ATTEND Physician Assistant
DX: R30.0 Dysuria (principal)

== ENCOUNTER → 2022-05-04 | Outpatient (REF) | payer MEDICARE, OTHER ==
[2022-05-04 15:56] LABS: CHOLESTEROL RISK RATIO 2.716 (<5)
== END ==
LOC: M SFHCADAM 08:49
PROVIDERS: ATTEND Physician Assistant
DX: E78.5 Hyperlipidemia, unspecified (principal)

== ENCOUNTER → 2022-06-14 | Outpatient (REF) | payer MEDICARE, OTHER ==
[2022-06-14 14:17] LABS: APPEARANCE, URINE MANUAL CLEAR (CLEAR); COLOR, URINE MANUAL YELLOW (YELLOW)
[2022-06-14 14:20] LABS: BILIRUBIN, URINE MANUAL NEGATIVE (NEGATIVE); BLOOD URINE MANUAL NEGATIVE (NEGATIVE); GLUCOSE, URINE (UA) MANUAL NEGATIVE (NEGATIVE); KETONE, URINE MANUAL NEGATIVE (NEGATIVE); LEUKOCYTE ESTERASE, URINE MAN NEGATIVE (NEGATIVE); NITRITE, URINE MANUAL NEGATIVE (NEGATIVE); PROTEIN, URINE MANUAL NEGATIVE (NEGATIVE); SPECIFIC GRAVITY,URINE MANUAL 1.005 (1.002-1.035); UROBILINOGEN, URINE MANUAL NORMAL (NORMAL)
== END ==
LOC: M SMT 13:09
PROVIDERS: ATTEND Nurse Practitioner Women's Health
DX: N32.81 Overactive bladder (principal)

== ENCOUNTER → 2022-07-18 | Outpatient (CLI) | payer MEDICARE, OTHER | LOC: M WHC 09:22 | PROVIDERS: ATTEND Advanced Practice Midwife | DX: R10.2 Pelvic and perineal pain (principal) ==

== ENCOUNTER → 2022-10-13 | Outpatient (REF) | payer MEDICARE, OTHER ==
[~2022-10-13] MED LIST changes: +MONT-5 PO; -SING10TA32 PO
[2022-10-13 14:47] LABS: ALBUMIN 3.8 G/DL (3.2-5.2); ALKALINE PHOSPHATASE 79 U/L (46-116); ALT/SGPT 20 U/L (7.0-40); AST/SGOT 21 U/L (<34); BILIRUBIN,TOTAL 0.7 MG/DL (0.3-1.2); BLOOD UREA NITROGEN 16 MG/DL (9-23); CALCIUM LEVEL 9.5 MG/DL (8.3-10.6); CARBON DIOXIDE LEVEL 32 MMOL/L (20-31); CHLORIDE LEVEL 103 MMOL/L (98-107); CREATININE FOR GFR 0.65 MG/DL (0.55-1.30); GLOMERULAR FILTRATION RATE > 60.0 (>45); GLUCOSE, FASTING 80 MG/DL (74-106); POTASSIUM SERUM 4.3 MMOL/L (3.5-5.1); SODIUM LEVEL 139 MMOL/L (136-145)
[2022-10-13 14:49] LABS: TOTAL 25(OH) VITAMIN D 56.8 NG/ML (20.0-100.0)
== END ==
LOC: M SFHCADAM 10:23
PROVIDERS: ATTEND Physician Assistant
DX: R10.13 Epigastric pain (principal); E55.9 Vitamin D deficiency, unspecified

== ENCOUNTER → 2022-12-06 | Outpatient (CLI) | payer MEDICARE, OTHER | LOC: M ADAMS 12:11 | PROVIDERS: ATTEND Family Medicine | DX: M50.30 Other cervical disc degeneration, unspecified cervical region (principal) ==

== ENCOUNTER → 2022-12-13 | Outpatient (CLI) | payer MEDICARE, OTHER | LOC: M WHC 13:38 | PROVIDERS: ATTEND Specialist | DX: C50.919 Malignant neoplasm of unspecified site of unspecified female breast (principal) | CPT/HCPCS: 77066; G0279 ==

== ENCOUNTER → 2023-03-07 | Outpatient (REF) | payer MEDICARE, OTHER ==
[2023-03-07 18:14] LABS: APPEARANCE, URINE CLEAR (CLEAR); BACTERIA, URINE AUTO NEGATIVE (NEGATIVE); BILIRUBIN, URINE AUTO NEGATIVE (NEGATIVE); BLOOD, URINE BLOOD NEGATIVE (NEGATIVE); COLOR, URINE YELLOW (YELLOW); GLUCOSE, URINE (UA) AUTO NEGATIVE (NEGATIVE); KETONE, URINE AUTO NEGATIVE (NEGATIVE); LEUKOCYTE ESTERASE, URINE AUTO NEGATIVE (NEGATIVE); NITRITE, URINE AUTO NEGATIVE (NEGATIVE); PROTEIN, URINE AUTO NEGATIVE (NEGATIVE); RBC, URINE AUTO 1 /HPF (0-3); SPECIFIC GRAVITY URINE AUTO 1.005 (1.002-1.035); SQUAMOUS EPITHELIAL CELL UR AU 0 /HPF (0-6); UROBILINOGEN, URINE AUTO 0.2 mg/dL (0.0-2.0); WBC, URINE AUTO 0 /HPF (0-3)
== END ==
LOC: M SMT 17:07
PROVIDERS: ATTEND Physician Assistant
DX: N32.81 Overactive bladder (principal); Z79.899 Other long term (current) drug therapy

== ENCOUNTER → 2023-03-16 | Outpatient (REF) | payer MEDICARE, OTHER ==
[2023-03-16 19:08] LABS: APPEARANCE, URINE HAZY (CLEAR); BACTERIA, URINE AUTO NEGATIVE (NEGATIVE); BILIRUBIN, URINE AUTO NEGATIVE (NEGATIVE); BLOOD, URINE BLOOD NEGATIVE (NEGATIVE); COLOR, URINE YELLOW (YELLOW); GLUCOSE, URINE (UA) AUTO NEGATIVE (NEGATIVE); KETONE, URINE AUTO NEGATIVE (NEGATIVE); LEUKOCYTE ESTERASE, URINE AUTO NEGATIVE (NEGATIVE); NITRITE, URINE AUTO NEGATIVE (NEGATIVE); PROTEIN, URINE AUTO NEGATIVE (NEGATIVE); RBC, URINE AUTO 1 /HPF (0-3); SPECIFIC GRAVITY URINE AUTO 1.008 (1.002-1.035); SQUAMOUS EPITHELIAL CELL UR AU 0 /HPF (0-6); UROBILINOGEN, URINE AUTO 0.2 mg/dL (0.0-2.0); WBC, URINE AUTO 0 /HPF (0-3)
== END ==
LOC: M SMT 17:07
PROVIDERS: ATTEND Physician Assistant
DX: R30.0 Dysuria (principal)

== ENCOUNTER → 2023-03-23 | Outpatient (CLI) | payer MEDICARE, OTHER | LOC: M ADAMS 13:07 | PROVIDERS: ATTEND Nurse Practitioner Adult Health | DX: J45.30 Mild persistent asthma, uncomplicated (principal) ==

== ENCOUNTER → 2023-04-12 | Outpatient (REF) | payer MEDICARE, OTHER ==
[2023-04-12 18:07] LABS: APPEARANCE, URINE CLEAR (CLEAR); BACTERIA, URINE AUTO NEGATIVE (NEGATIVE); BILIRUBIN, URINE AUTO NEGATIVE (NEGATIVE); BLOOD, URINE BLOOD NEGATIVE (NEGATIVE); COLOR, URINE YELLOW (YELLOW); GLUCOSE, URINE (UA) AUTO NEGATIVE (NEGATIVE); KETONE, URINE AUTO NEGATIVE (NEGATIVE); LEUKOCYTE ESTERASE, URINE AUTO NEGATIVE (NEGATIVE); NITRITE, URINE AUTO NEGATIVE (NEGATIVE); PROTEIN, URINE AUTO NEGATIVE (NEGATIVE); RBC, URINE AUTO 1 /HPF (0-3); SPECIFIC GRAVITY URINE AUTO 1.012 (1.002-1.035); SQUAMOUS EPITHELIAL CELL UR AU 0 /HPF (0-6); UROBILINOGEN, URINE AUTO 0.2 mg/dL (0.0-2.0); WBC, URINE AUTO 0 /HPF (0-3)
== END ==
LOC: M SMT 17:04
PROVIDERS: ATTEND Urology
DX: R39.9 Unspecified symptoms and signs involving the genitourinary system (principal)

== ENCOUNTER → 2023-05-16 | Outpatient (REF) | payer MEDICARE, OTHER ==
[2023-05-16 13:41] LABS: PERCENT SATURATION 18.1 % (13.2-45.0)
[2023-05-16 13:46] LABS: BASO % 0.8 % (0.0-1.0); EOS # 0.1 10^3/uL (0.0-0.5); EOS % 1.7 % (0.0-3.0); HEMATOCRIT 38.3 % (36.0-47.0); HEMOGLOBIN 12.4 g/dl (12.0-15.5); LYMPH # 1.5 10^3/uL (1.5-5.0); LYMPH % 28.3 % (24.0-44.0); MEAN CORPUSCULAR HEMOGLOBIN 33.9 pg (27.0-33.0); MEAN CORPUSCULAR HGB CONC 32.4 g/dl (32.0-36.5); MEAN CORPUSCULAR VOLUME 104.6 fl (80.0-96.0); MONO # 0.6 10^3/uL (0.0-0.8); MONO % 10.3 % (2.0-8.0); NEUTROPHILS # 3.1 10^3/uL (1.5-8.5); NEUTROPHILS % 58.7 % (36.0-66.0); PLATELET COUNT, AUTOMATED 250 10^3/uL (150-450); RED BLOOD COUNT 3.66 10^6/uL (4.00-5.40); WHITE BLOOD COUNT 5.3 10^3/uL (4.0-10.0)
[2023-05-16 13:47] LABS: FERRITIN 19.6 NG/ML (7.3-270.7)
== END ==
LOC: M SFHCADAM 08:16
PROVIDERS: ATTEND Physician Assistant
DX: D64.9 Anemia, unspecified (principal)

== ENCOUNTER → 2023-05-23 | Outpatient (REF) | payer MEDICARE, OTHER | LOC: M SFHCADAM 13:54 | PROVIDERS: ATTEND Physician Assistant | DX: D75.89 Other specified diseases of blood and blood-forming organs (principal) ==

== ENCOUNTER → 2023-08-11 | Outpatient (REF) | payer MEDICARE, OTHER ==
[2023-08-11 15:30] LABS: APPEARANCE, URINE HAZY (CLEAR); BACTERIA, URINE AUTO NEGATIVE (NEGATIVE); BILIRUBIN, URINE AUTO NEGATIVE (NEGATIVE); BLOOD, URINE BLOOD NEGATIVE (NEGATIVE); COLOR, URINE YELLOW (YELLOW); GLUCOSE, URINE (UA) AUTO NEGATIVE (NEGATIVE); KETONE, URINE AUTO NEGATIVE (NEGATIVE); LEUKOCYTE ESTERASE, URINE AUTO NEGATIVE (NEGATIVE); NITRITE, URINE AUTO NEGATIVE (NEGATIVE); PROTEIN, URINE AUTO NEGATIVE (NEGATIVE); RBC, URINE AUTO 1 /HPF (0-3); SPECIFIC GRAVITY URINE AUTO 1.006 (1.002-1.035); SQUAMOUS EPITHELIAL CELL UR AU 0 /HPF (0-6); UROBILINOGEN, URINE AUTO 0.2 mg/dL (0.0-2.0); WBC, URINE AUTO 1 /HPF (0-3)
== END ==
LOC: M SMT 15:16
PROVIDERS: ATTEND Physician Assistant
DX: R31.21 Asymptomatic microscopic hematuria (principal)

== ENCOUNTER → 2023-08-17 | Outpatient (REF) | payer MEDICARE, OTHER ==
[2023-08-17 14:20] LABS: BASO # 0.1 10^3/uL (0.0-0.2); BASO % 1.3 % (0.0-1.0); EOS # 0.1 10^3/uL (0.0-0.5); EOS % 2.3 % (0.0-3.0); HEMATOCRIT 38.9 % (36.0-47.0); HEMOGLOBIN 12.9 g/dl (12.0-15.5); LYMPH # 1.3 10^3/uL (1.5-5.0); LYMPH % 25.1 % (24.0-44.0); MEAN CORPUSCULAR HEMOGLOBIN 33.5 pg (27.0-33.0); MEAN CORPUSCULAR HGB CONC 33.2 g/dl (32.0-36.5); MONO # 0.5 10^3/uL (0.0-0.8); MONO % 10.1 % (2.0-8.0); NEUTROPHILS # 3.3 10^3/uL (1.5-8.5); PLATELET COUNT, AUTOMATED 244 10^3/uL (150-450); RED BLOOD COUNT 3.85 10^6/uL (4.00-5.40); WHITE BLOOD COUNT 5.3 10^3/uL (4.0-10.0)
[2023-08-17 14:27] LABS: ALBUMIN 3.6 G/DL (3.2-5.2); ALKALINE PHOSPHATASE 77 U/L (46-116); ALT/SGPT 20 U/L (7.0-40); AST/SGOT 16 U/L (<34); BILIRUBIN,TOTAL 0.9 MG/DL (0.3-1.2); BLOOD UREA NITROGEN 18 MG/DL (9-23); CALCIUM LEVEL 9.3 MG/DL (8.3-10.6); CARBON DIOXIDE LEVEL 31 MMOL/L (20-31); CHLORIDE LEVEL 104 MMOL/L (98-107); CREATININE FOR GFR 0.65 MG/DL (0.55-1.30); GLOMERULAR FILTRATION RATE > 60.0 (>45); GLUCOSE, FASTING 98 MG/DL (74-106); IRON (FE) 123 UG/DL (50-170); PERCENT SATURATION 35.9 % (13.2-45.0); POTASSIUM SERUM 4.3 MMOL/L (3.5-5.1); SODIUM LEVEL 140 MMOL/L (136-145); TOTAL IRON BINDING CAPACITY 343 UG/DL (250-425); TOTAL PROTEIN 6.8 G/DL (5.7-8.2)
== END ==
LOC: M SFHCADAM 10:08
PROVIDERS: ATTEND Physician Assistant
DX: D75.89 Other specified diseases of blood and blood-forming organs (principal); D64.9 Anemia, unspecified

== ENCOUNTER → 2023-08-22 | Outpatient (CLI) | payer MEDICARE, OTHER | LOC: M PLAIMG 14:22 | PROVIDERS: ATTEND Physician Assistant | DX: R06.09 Other forms of dyspnea (principal) ==

== ENCOUNTER → 2023-08-30 | Outpatient (CLI) | payer MEDICARE, OTHER ==
[~2023-08-30] MED LIST changes: -MIRA1POW3 PO; +MIRA33506 PO
== END ==
LOC: M RAD 08:41
PROVIDERS: ATTEND Physician Assistant
DX: R09.89 Other specified symptoms and signs involving the circulatory and respiratory systems (principal)

== ENCOUNTER → 2023-12-19 | Outpatient (CLI) | payer MEDICARE, OTHER ==
[~2023-12-19] MED LIST changes: +VIBE75TA
== END ==
LOC: M WHC 10:52
PROVIDERS: ATTEND Specialist
DX: C50.919 Malignant neoplasm of unspecified site of unspecified female breast (principal); N64.59 Other signs and symptoms in breast
CPT/HCPCS: 77066; G0279

== ENCOUNTER → 2023-12-29 | Outpatient (REF) | payer MEDICARE, OTHER ==
[2023-12-29 11:18] LABS: APPEARANCE, URINE CLEAR (CLEAR); BACTERIA, URINE AUTO NEGATIVE (NEGATIVE); BILIRUBIN, URINE AUTO NEGATIVE (NEGATIVE); BLOOD, URINE BLOOD NEGATIVE (NEGATIVE); COLOR, URINE STRAW (YELLOW); GLUCOSE, URINE (UA) AUTO NEGATIVE (NEGATIVE); KETONE, URINE AUTO NEGATIVE (NEGATIVE); LEUKOCYTE ESTERASE, URINE AUTO NEGATIVE (NEGATIVE); NITRITE, URINE AUTO NEGATIVE (NEGATIVE); PROTEIN, URINE AUTO NEGATIVE (NEGATIVE); RBC, URINE AUTO 1 /HPF (0-3); SPECIFIC GRAVITY URINE AUTO 1.003 (1.002-1.035); SQUAMOUS EPITHELIAL CELL UR AU 0 /HPF (0-6); UROBILINOGEN, URINE AUTO 0.2 mg/dL (0.0-2.0); WBC, URINE AUTO 0 /HPF (0-3)
== END ==
LOC: M SMT 10:10
PROVIDERS: ATTEND Physician Assistant
DX: R31.21 Asymptomatic microscopic hematuria (principal)

== ENCOUNTER → 2024-02-20 | Outpatient (REF) | payer MEDICARE, OTHER ==
[2024-02-20 13:40] LABS: BASO % 0.7 % (0.0-1.0); EOS # 0.2 10^3/uL (0.0-0.5); EOS % 2.9 % (0.0-3.0); HEMATOCRIT 37.7 % (36.0-47.0); HEMOGLOBIN 12.5 g/dl (12.0-15.5); LYMPH # 1.6 10^3/uL (1.5-5.0); LYMPH % 26.5 % (24.0-44.0); MEAN CORPUSCULAR HEMOGLOBIN 33.7 pg (27.0-33.0); MEAN CORPUSCULAR HGB CONC 33.2 g/dl (32.0-36.5); MEAN CORPUSCULAR VOLUME 101.6 fl (80.0-96.0); MONO # 0.6 10^3/uL (0.0-0.8); MONO % 10.8 % (2.0-8.0); NEUTROPHILS # 3.4 10^3/uL (1.5-8.5); NEUTROPHILS % 58.8 % (36.0-66.0); PLATELET COUNT, AUTOMATED 266 10^3/uL (150-450); RED BLOOD COUNT 3.71 10^6/uL (4.00-5.40); WHITE BLOOD COUNT 5.8 10^3/uL (4.0-10.0)
[2024-02-20 13:46] LABS: ALBUMIN 3.8 G/DL (3.2-5.2); ALKALINE PHOSPHATASE 83 U/L (46-116); ALT/SGPT 22 U/L (7.0-40); AST/SGOT 18 U/L (<34); BILIRUBIN,TOTAL 0.8 MG/DL (0.3-1.2); BLOOD UREA NITROGEN 17 MG/DL (9-23); CALCIUM LEVEL 9.7 MG/DL (8.3-10.6); CARBON DIOXIDE LEVEL 34 MMOL/L (20-31); CHLORIDE LEVEL 103 MMOL/L (98-107); CHOLESTEROL LEVEL 191 MG/DL (<200); CHOLESTEROL RISK RATIO 2.77 (<5); CREATININE FOR GFR 0.62 MG/DL (0.55-1.30); GLOMERULAR FILTRATION RATE > 60.0 (>45); GLUCOSE, FASTING 97 MG/DL (74-106); HDL CHOLESTEROL 68.9 MG/DL (>40); LDL CHOLESTEROL 111.1 MG/DL (<100); NON-HDL-C 122.1 MG/DL; POTASSIUM SERUM 4.3 MMOL/L (3.5-5.1); SODIUM LEVEL 137 MMOL/L (136-145); TOTAL PROTEIN 7.1 G/DL (5.7-8.2); TRIGLYCERIDES LEVEL 55 MG/DL (<150)
[2024-02-20 13:48] LABS: FREE T4 1.04 NG/DL (0.89-1.76); TOTAL 25(OH) VITAMIN D 57.9 NG/ML (20.0-100.0)
[2024-02-20 13:49] LABS: THYROID STIMULATING HORMONE 1.371 uIU/ML (0.55-4.78)
== END ==
LOC: M SFHCADAM 08:02
PROVIDERS: ATTEND Physician Assistant
DX: Z13.220 Encounter for screening for lipoid disorders (principal); K21.9 Gastro-esophageal reflux disease without esophagitis; M81.0 Age-related osteoporosis without current pathological fracture; Z85.3 Personal history of malignant neoplasm of breast; Z79.899 Other long term (current) drug therapy

== ENCOUNTER → 2024-03-25 | Outpatient (REF) | payer MEDICARE, OTHER ==
[2024-03-25 14:25] LABS: BASO # 0.1 10^3/uL (0.0-0.2); BASO % 0.8 % (0.0-1.0); EOS # 0.2 10^3/uL (0.0-0.5); EOS % 2.7 % (0.0-3.0); HEMATOCRIT 37.6 % (36.0-47.0); HEMOGLOBIN 12.4 g/dl (12.0-15.5); LYMPH # 1.7 10^3/uL (1.5-5.0); LYMPH % 28.4 % (24.0-44.0); MEAN CORPUSCULAR HEMOGLOBIN 33.7 pg (27.0-33.0); MEAN CORPUSCULAR VOLUME 102.2 fl (80.0-96.0); MONO # 0.7 10^3/uL (0.0-0.8); NEUTROPHILS # 3.4 10^3/uL (1.5-8.5); NEUTROPHILS % 56.9 % (36.0-66.0); PLATELET COUNT, AUTOMATED 251 10^3/uL (150-450); RED BLOOD COUNT 3.68 10^6/uL (4.00-5.40); WHITE BLOOD COUNT 5.9 10^3/uL (4.0-10.0)
[2024-03-25 14:31] LABS: ALKALINE PHOSPHATASE 86 U/L (46-116); ALT/SGPT 21 U/L (7.0-40); AST/SGOT 19 U/L (<34); BILIRUBIN,TOTAL 0.7 MG/DL (0.3-1.2); BLOOD UREA NITROGEN 17 MG/DL (9-23); CALCIUM LEVEL 9.8 MG/DL (8.3-10.6); CARBON DIOXIDE LEVEL 32 MMOL/L (20-31); CHLORIDE LEVEL 103 MMOL/L (98-107); CREATININE FOR GFR 0.65 MG/DL (0.55-1.30); GLOMERULAR FILTRATION RATE > 60.0 (>45); GLUCOSE, FASTING 89 MG/DL (74-106); POTASSIUM SERUM 4.2 MMOL/L (3.5-5.1); SODIUM LEVEL 138 MMOL/L (136-145); TOTAL PROTEIN 7.2 G/DL (5.7-8.2)
[2024-03-25 14:33] LABS: CARCINOEMBRYONIC ANTIGEN < 2.0 NG/ML (<2.5)
[2024-03-25 14:48] LABS: CA15-3 ANTIGEN 16.4 U/ML (<32.4)
== END ==
LOC: M LABDRWAD 12:51
PROVIDERS: ATTEND Specialist
DX: C50.919 Malignant neoplasm of unspecified site of unspecified female breast (principal)

== ENCOUNTER 2024-08-30 09:35 | Emergency (ER) | payer MEDICARE, OTHER ==
[~2024-08-30] VITALS: Ht 167.6 cm; Wt 54.0 kg
[~2024-08-30 09:35] MED LIST changes: -ADV100INH INH; +ADVA1AER8 INH; +CLOB0.0548; +ESOM40CA35; +SERT50TA29; +VIBE75TA PO
[2024-08-30 14:45] LABS: KETONE, URINE AUTO RFX TRACE mg/dL (NEGATIVE); LEUKOCYTE ESTERASE UR AUTO RFX NEGATIVE (NEGATIVE); NITRITE, URINE AUTO RFX NEGATIVE (NEGATIVE); RBC, URINE AUTO RFX 1 /HPF (0-3); SQUAM EPITHELIAL CELL UR AURFX 0 /HPF (0-6); WBC, URINE AUTO RFX 0 /HPF (0-3)
[2024-08-30 14:52] LABS: BASO # 0.1 10^3/uL (0.0-0.2); BASO % 0.7 % (0.0-1.0); EOS # 0.1 10^3/uL (0.0-0.5); EOS % 1.3 % (0.0-3.0); HEMATOCRIT 39.5 % (36.0-47.0); HEMOGLOBIN 13.3 g/dl (12.0-15.5); LYMPH # 1.6 10^3/uL (1.5-5.0); LYMPH % 21.9 % (24.0-44.0); MEAN CORPUSCULAR HEMOGLOBIN 34.1 pg (27.0-33.0); MEAN CORPUSCULAR HGB CONC 33.7 g/dl (32.0-36.5); MEAN CORPUSCULAR VOLUME 101.3 fl (80.0-96.0); MONO # 0.6 10^3/uL (0.0-0.8); MONO % 8.4 % (2.0-8.0); NEUTROPHILS # 4.8 10^3/uL (1.5-8.5); NEUTROPHILS % 67.4 % (36.0-66.0); PLATELET COUNT, AUTOMATED 261 10^3/uL (150-450); WHITE BLOOD COUNT 7.1 10^3/uL (4.0-10.0)
[2024-08-30 15:00] LABS: LIPASE 27 U/L (12-53)
[2024-08-30 15:03] LABS: ALBUMIN 4.1 G/DL (3.2-5.2); ALKALINE PHOSPHATASE 79 U/L (35-104); ALT/SGPT 24 U/L (7.0-40); AST/SGOT 23 U/L (<34); BILIRUBIN,DIRECT 0.2 MG/DL (<0.4); BILIRUBIN,TOTAL 0.9 MG/DL (0.3-1.2); BLOOD UREA NITROGEN 12 MG/DL (9-23); CALCIUM LEVEL 10.1 MG/DL (8.3-10.6); CARBON DIOXIDE LEVEL 30 MMOL/L (20-31); CHLORIDE LEVEL 104 MMOL/L (98-107); CREATININE FOR GFR 0.63 MG/DL (0.55-1.30); GLOMERULAR FILTRATION RATE > 60.0 (>45); GLUCOSE, FASTING 90 MG/DL (74-106); POTASSIUM SERUM 3.8 MMOL/L (3.5-5.1); SODIUM LEVEL 142 MMOL/L (136-145); TOTAL PROTEIN 7.7 G/DL (5.7-8.2)
[2024-08-30] MEDS ORDERED: COLA100C5 PO (16:24)
[2024-08-30] MEDS ORDERED: MAGNESIUM CITRATE 300ML BTL PO ONE (16:25)
[2024-08-30 17:02] VITALS: BP 120/62; TEMP 96.4; O2SAT 99
== END 2024-08-30 17:04 | disposition home or self-care (01) ==
LOC: M ED 09:35
DX: K59.00 Constipation, unspecified (principal); F41.9 Anxiety disorder, unspecified; J45.909 Unspecified asthma, uncomplicated; C50.919 Malignant neoplasm of unspecified site of unspecified female breast; Z88.6 Allergy status to analgesic agent; Z88.8 Allergy status to other drugs, medicaments and biological substances; Z91.09 Other allergy status, other than to drugs and biological substances; Z79.51 Long term (current) use of inhaled steroids; Z79.899 Other long term (current) drug therapy; Z79.810 Long term (current) use of selective estrogen receptor modulators (SERMs)

== ENCOUNTER → 2024-09-26 | Outpatient (REF) | payer MEDICARE, OTHER ==
[~2024-09-26] MED LIST changes: +COLA100C5 PO
[2024-09-27 11:40] LABS: AMORPHOUS SEDIMENT MODERATE (NEGATIVE); APPEARANCE, URINE CLOUDY (CLEAR); BACTERIA, URINE AUTO 1+ (NEGATIVE); BILIRUBIN, URINE AUTO NEGATIVE (NEGATIVE); BLOOD, URINE BLOOD NEGATIVE (NEGATIVE); CALCIUM OXALATE CRYSTALS SMALL; COLOR, URINE AMBER (YELLOW); GLUCOSE, URINE (UA) AUTO NEGATIVE (NEGATIVE); KETONE, URINE AUTO NEGATIVE (NEGATIVE); LEUKOCYTE ESTERASE, URINE AUTO NEGATIVE (NEGATIVE); MUCUS, URINE SMALL (NEGATIVE); NITRITE, URINE AUTO NEGATIVE (NEGATIVE); PROTEIN, URINE AUTO NEGATIVE (NEGATIVE); RBC, URINE AUTO 2 /HPF (0-3); SPECIFIC GRAVITY URINE AUTO 1.017 (1.002-1.035); SQUAMOUS EPITHELIAL CELL UR AU 0 /HPF (0-6); UROBILINOGEN, URINE AUTO 0.2 mg/dL (0.0-2.0); WBC, URINE AUTO 1 /HPF (0-3)
== END ==
LOC: M PLALAB 14:21
PROVIDERS: ATTEND Advanced Practice Midwife
DX: R10.2 Pelvic and perineal pain (principal); R39.9 Unspecified symptoms and signs involving the genitourinary system

== ENCOUNTER 2024-10-23 08:00 | Day surgery (SDC) | payer MEDICARE, OTHER ==
[~2024-10-23] VITALS: Ht 167.6 cm; Wt 50.4 kg
[~2024-10-23 08:00] MED LIST changes: +ACID1TAB PO; +ADVA1AER9 INH; +AMOX875T PO; +ESOM40CA35 PO; +FLUT1BLS5 INH; +META28.32 PO; +MONT10TA97 PO; +PARO5TAB PO; +THERTAB52 PO; +VITA400T PO
[2024-10-23 09:54] VITALS: TEMP 97.4
[2024-10-23 10:16] VITALS: BP 120/87; O2SAT 99
== END 2024-10-23 10:19 | disposition home or self-care (01) ==
LOC: M OPP 08:00
PROVIDERS: ATTEND Internal Medicine Gastroenterology
DX: Z12.11 Encounter for screening for malignant neoplasm of colon (principal); K57.30 Diverticulosis of large intestine without perforation or abscess without bleeding; K64.0 First degree hemorrhoids; Z88.1 Allergy status to other antibiotic agents; Z88.8 Allergy status to other drugs, medicaments and biological substances; Z91.048 Other nonmedicinal substance allergy status; Z79.899 Other long term (current) drug therapy; J45.909 Unspecified asthma, uncomplicated

== ENCOUNTER → 2024-11-26 | Outpatient (REF) | payer MEDICARE, OTHER | LOC: M SFHCADAM 11:32 | PROVIDERS: ATTEND Physician Assistant | DX: A69.20 Lyme disease, unspecified (principal) ==

== ENCOUNTER → 2025-03-12 | Outpatient (REF) | payer MEDICARE, OTHER ==
[2025-03-12 14:36] LABS: ALT/SGPT 28 U/L (7.0-40); AST/SGOT 26 U/L (<34); CALCIUM LEVEL 9.9 MG/DL (8.3-10.6); CARBON DIOXIDE LEVEL 32 MMOL/L (20-31); CHLORIDE LEVEL 102 MMOL/L (98-107); CREATININE FOR GFR 0.65 MG/DL (0.55-1.30); GLOMERULAR FILTRATION RATE > 90.0 (>45); POTASSIUM SERUM 4.3 MMOL/L (3.5-5.1); SODIUM LEVEL 144 MMOL/L (136-145)
[2025-03-12 15:15] LABS: BASO # 0.1 10^3/uL (0.0-0.2); BASO % 1.1 % (0.0-1.0); EOS # 0.1 10^3/uL (0.0-0.5); EOS % 2.0 % (0.0-3.0); LYMPH # 1.5 10^3/uL (1.5-5.0); LYMPH % 27.8 % (24.0-44.0); MONO # 0.6 10^3/uL (0.0-0.8); MONO % 11.1 % (2.0-8.0); NEUTROPHILS # 3.1 10^3/uL (1.5-8.5); NEUTROPHILS % 57.8 % (36.0-66.0); PLATELET COUNT, AUTOMATED 249 10^3/uL (150-450)
== END ==
LOC: M SFHCADAM 07:47
PROVIDERS: ATTEND Physician Assistant
DX: R10.84 Generalized abdominal pain (principal)

== ENCOUNTER → 2025-04-15 | Outpatient (REF) | payer MEDICARE, OTHER ==
[2025-04-15 13:09] LABS: APPEARANCE, URINE CLEAR (CLEAR); BACTERIA, URINE AUTO NEGATIVE (NEGATIVE); BILIRUBIN, URINE AUTO NEGATIVE (NEGATIVE); BLOOD, URINE BLOOD NEGATIVE (NEGATIVE); GLUCOSE, URINE (UA) AUTO NEGATIVE (NEGATIVE); KETONE, URINE AUTO NEGATIVE (NEGATIVE); LEUKOCYTE ESTERASE, URINE AUTO NEGATIVE (NEGATIVE); NITRITE, URINE AUTO NEGATIVE (NEGATIVE); PROTEIN, URINE AUTO NEGATIVE (NEGATIVE); RBC, URINE AUTO 0 /HPF (0-3); SPECIFIC GRAVITY URINE AUTO 1.005 (1.002-1.035); SQUAMOUS EPITHELIAL CELL UR AU 0 /HPF (0-6); UROBILINOGEN, URINE AUTO 0.2 mg/dL (0.0-2.0); WBC, URINE AUTO 0 /HPF (0-3)
== END ==
LOC: M SMT 12:53
PROVIDERS: ATTEND Physician Assistant
DX: R31.21 Asymptomatic microscopic hematuria (principal)

== ENCOUNTER → 2025-04-22 | Outpatient (REF) | payer MEDICARE, OTHER ==
[2025-04-22 14:32] LABS: CHOLESTEROL LEVEL 191.0 MG/DL (<200); CHOLESTEROL RISK RATIO 2.63 (<5); LDL CHOLESTEROL 107.2 MG/DL (<100); NON-HDL-C 118.4 MG/DL; TRIGLYCERIDES LEVEL 56.0 MG/DL (<150)
[2025-04-22 14:35] LABS: FREE T4 1.16 NG/DL (0.89-1.76)
== END ==
LOC: M SFHCADAM 07:42
PROVIDERS: ATTEND Physician Assistant
DX: K21.9 Gastro-esophageal reflux disease without esophagitis (principal); E55.9 Vitamin D deficiency, unspecified; N32.81 Overactive bladder; Z13.1 Encounter for screening for diabetes mellitus; Z13.220 Encounter for screening for lipoid disorders

== ENCOUNTER → 2025-04-22 | Outpatient (CLI) | payer MEDICARE, OTHER ==
[2025-04-22 14:29] LABS: BASO # 0.1 10^3/uL (0.0-0.2); BASO % 0.9 % (0.0-1.0); EOS # 0.1 10^3/uL (0.0-0.5); EOS % 2.4 % (0.0-3.0); LYMPH # 1.8 10^3/uL (1.5-5.0); LYMPH % 33.5 % (24.0-44.0); MONO # 0.6 10^3/uL (0.0-0.8); MONO % 10.7 % (2.0-8.0); NEUTROPHILS # 2.9 10^3/uL (1.5-8.5); NEUTROPHILS % 52.3 % (36.0-66.0); PLATELET COUNT, AUTOMATED 265 10^3/uL (150-450)
[2025-04-22 14:31] LABS: ALT/SGPT 26 U/L (7.0-40); AST/SGOT 25 U/L (<34); CALCIUM LEVEL 9.8 MG/DL (8.3-10.6); CARBON DIOXIDE LEVEL 32 MMOL/L (20-31); CHLORIDE LEVEL 103 MMOL/L (98-107); CREATININE FOR GFR 0.61 MG/DL (0.55-1.30); GLOMERULAR FILTRATION RATE > 90.0 (>45); POTASSIUM SERUM 4.3 MMOL/L (3.5-5.1); SODIUM LEVEL 143 MMOL/L (136-145)
[2025-04-22 14:51] LABS: CA15-3 ANTIGEN 21.8 U/ML (<32.4)
== END ==
LOC: M LABDRWAD 07:47
PROVIDERS: ATTEND Specialist
DX: K21.9 Gastro-esophageal reflux disease without esophagitis (principal); E55.9 Vitamin D deficiency, unspecified; N32.81 Overactive bladder; Z13.1 Encounter for screening for diabetes mellitus; Z13.220 Encounter for screening for lipoid disorders; Z85.3 Personal history of malignant neoplasm of breast; Z79.899 Other long term (current) drug therapy

== ENCOUNTER → 2025-06-18 | Outpatient (REF) | payer MEDICARE, OTHER ==
[2025-06-18 17:20] LABS: APPEARANCE, URINE HAZY (CLEAR); BACTERIA, URINE AUTO NEGATIVE (NEGATIVE); BILIRUBIN, URINE AUTO NEGATIVE (NEGATIVE); BLOOD, URINE BLOOD NEGATIVE (NEGATIVE); GLUCOSE, URINE (UA) AUTO NEGATIVE (NEGATIVE); KETONE, URINE AUTO NEGATIVE (NEGATIVE); LEUKOCYTE ESTERASE, URINE AUTO NEGATIVE (NEGATIVE); MUCUS, URINE SMALL (NEGATIVE); NITRITE, URINE AUTO NEGATIVE (NEGATIVE); PROTEIN, URINE AUTO NEGATIVE (NEGATIVE); RBC, URINE AUTO 0 /HPF (0-3); SPECIFIC GRAVITY URINE AUTO 1.006 (1.002-1.035); SQUAMOUS EPITHELIAL CELL UR AU 0 /HPF (0-6); UROBILINOGEN, URINE AUTO 0.2 mg/dL (0.0-2.0); WBC, URINE AUTO 0 /HPF (0-3)
== END ==
LOC: M SMT 16:46
PROVIDERS: ATTEND Physician Assistant
DX: R39.9 Unspecified symptoms and signs involving the genitourinary system (principal)